=== PATIENT | female | born 1945 | race Two or more races ===

== ENCOUNTER 2017-01-20 09:54 | Inpatient (IN) | payer MEDICARE, MEDICAID ==
[~2017-01-20] VITALS: Ht 162.6 cm; Wt 91.2 kg
[~2017-01-20 09:54] MED LIST: ACET325T53 GT; ASPI81TA2 GT; ATEN50TA GT; ATOR10TA GT; BISA10SU8 RC; CARB-94 GT; DOCU50LI GT; ENTA200T GT; FURO-145 GT; HYDR-3326 GT; MAGN400O6 GT; NA P133E RC; PRO HEAL GT
--- NOTE | 2017-01-20 10:00 | NUR ---
PATIENT BIB RA D/T SOB, TACHYCARDIA. PATIENT IS WARM TO TOUCH. A/OX 1. PATIENT HAS MODERATE AMOUNT OF ORAL SECRETIONS, SUCTIONED BY RT. NO DISTRESS. VITALS STABLE. SAFETY AND COMFORT MEASURES IN PLACE. AWAITING MD ORDERS.
--- NOTE | 2017-01-20 10:10 | NUR ---
NEW IV STARTED ON RFA, 20 G. BLOOD DRAWN AND SENT TO LAB.
[2017-01-20 10:12] LABS: BASOPHILS # (AUTO) 0.2 /CMM (0.0-0.2); BASOPHILS % (AUTO) 1.2 % (0.0-2.0); EOSINOPHILS # (AUTO) 0.1 /CMM (0.0-0.7); EOSINOPHILS % (AUTO) 0.8 % (0.0-6.0); HEMATOCRIT 39 % (33-45); HEMOGLOBIN 12.9 g/dL (11.5-14.8); LYMPHOCYTES # (AUTO) 1.3 /CMM (0.8-4.8); LYMPHOCYTES % (AUTO) 9.5 % (20.0-44.0); MEAN CORPUSCULAR HEMOGLOBIN 31 PG (26.0-33.0); MEAN CORPUSCULAR HGB CONC 33 g/dl (31.0-36.0); MEAN CORPUSCULAR VOLUME 94 fL (82-100); MONOCYTES # (AUTO) 0.8 /CMM (0.1-1.30); MONOCYTES % (AUTO) 5.6 % (2.0-12.0); NEUTROPHILS # (AUTO) 11.1 /CMM (1.8-8.9); NEUTROPHILS % (AUTO) 82.9 % (43.0-81.0); PLATELET COUNT (AUTO) 206 /CMM (150-450); RDW COEFFICIENT OF VARIATION 14.3 (11.5-15.0); RED BLOOD CELL COUNT(AUTO) 4.14 MIL/uL (4.0-5.2); WHITE BLOOD COUNT (AUTO) 13.5 K/uL (4.3-11.0)
[2017-01-20 10:22] LABS: CALCIUM, SERUM 8.7 mg/dL (8.5-10.1); CREATININE 0.5 mg/dL (0.6-1.3); POTASSIUM 4.1 mmol/L (3.5-5.1)
[2017-01-20 10:26] LABS: INR 1.09 (0.87-1.13); PROTHROMBIN TIME 11.4 SECS (9.5-12.7)
[2017-01-20 10:27] LABS: ALBUMIN 2.6 g/dL (3.4-5.0); BILIRUBIN,DIRECT 0.1 mg/dL (0.0-0.2); BILIRUBIN,TOTAL 0.5 mg/dL (0.2-1.0); TOTAL PROTEIN, SERUM 7.6 g/dL (6.4-8.2)
[2017-01-20 10:30] LABS: TROPONIN I 0.033 ng/mL (0.00-0.056)
[2017-01-20] MEDS ORDERED: LEVOFLOXACIN 750 MG /D5W 150ML 150 ML IV ONE ×2 (10:30→10:36)
[2017-01-20] MEDS ORDERED: VANCOMYCIN 1 GM in IV D5W 250 ML IV ONE (10:30)
[2017-01-20] MEDS ORDERED: PIPERACILLIN /TAZOBACTAM 3.375 G in IV D5W 50 ML IV ONE (10:30)
--- NOTE | 2017-01-20 10:30 | NUR ---
WRIGHT INSERTED PER MD ORDERS. NO URINE OUTPUT AT THIS TIME. WILL CONTINUE TO MONITOR.
[2017-01-20] MEDS ORDERED: PANT40SU2 GT (10:45)
[2017-01-20] MEDS ORDERED: FLUT16SP16 BNOSTRILS (10:45)
[2017-01-20] MEDS ORDERED: INSU100V3 SQ (10:45)
[2017-01-20] MEDS ORDERED: MULT-213 GT (10:45)
[2017-01-20] MEDS ORDERED: ASCO500T9 GT (10:45)
[2017-01-20] MEDS ORDERED: LACT-96 GT (10:45)
--- NOTE | 2017-01-20 11:00 | NUR ---
PAGED DR TRUJILLO HEAD OF ETHICS AND COMPLIANCE PANEL
--- NOTE | 2017-01-20 11:03 | NUR ---
DR LOWE ON THE PHONE WITH DR TRUJILLO
--- NOTE | 2017-01-20 11:14 | NUR ---
URINE OBTAINED AND SENT TO LAB.
[2017-01-20] MEDS ORDERED: Z GUARD REMEDY 2 OZ OINT TP PRN (11:30)
[2017-01-20] MEDS ORDERED: ONDANSETRON HCL/PF 4 MG/2 ML VIAL IVP PRN (11:30)
[2017-01-20] MEDS ORDERED: MAGNESIUM HYDROXIDE 30 ML UDC GT PRN (11:30)
[2017-01-20] MEDS ORDERED: DEXTROSE 50%-WATER 50 ML DISP.SYRIN IV PRN (11:30)
[2017-01-20] MEDS ORDERED: MAG HYDROX/AL HYDROX/SIMETH 30 ML UDC GT PRN (11:30)
[2017-01-20] MEDS ORDERED: HYDROCODONE/APAP 5/325MG 1 EACH TABLET GT PRN (11:30)
[2017-01-20] MEDS ORDERED: ZOLPIDEM TARTRATE 5 MG TABLET PO PRN (11:30)
[2017-01-20] MEDS ORDERED: MAGNESIUM HYDROXIDE 30 ML UDC PO PRN (11:30)
[2017-01-20] MEDS ORDERED: BISACODYL SUPP (10 MG) 10 MG/SUPP.RECT SUPP.RECT RC PRN (11:30)
--- NOTE | 2017-01-20 11:33 | NUR ---
REPORT GIVEN TO RN, ZOIE FOR ADMISSION.
[2017-01-20 11:37] LABS: APPEARANCE,URINE Turbid (CLEAR); BILIRUBIN,URINE Negative (NEGATIVE); BLOOD, URINE Large Ery/uL (NEGATIVE); COLOR,URINE Orange (YELLOW); KETONES,URINE Trace (NEGATIVE); LEUKOCYTE ESTERASE ,URINE Negative (NEGATIVE); NITRITE, URINE Negative (NEGATIVE); PH,URINE 5.5 (5.0-8.0); PROTEIN,URINE >=300 mg/dl (NEGATIVE); UGLUCOSE 100 MG/DL mg/dL (NEGATIVE)
[2017-01-20 11:47] LABS: RBC,URINE TOO NUMEROUS TO COUN /HPF (0-2)
[2017-01-20 11:48] LABS: BACTERIA,URINE None seen /HPF (None Seen); SQUAMOUS EPITHELIAL CELL,UR Few /HPF (None Seen)
[2017-01-20] MEDS ORDERED: ACETAMINOPHEN 650 MG/20.3 ML UDC GT PRN (12:00)
--- NOTE | 2017-01-20 12:05 | NUR ---
PATIENT TRANSPORTED TO [facility] FOR ADMISSION VIA ACLS PROTOCOL. RN, ZOIE TO PROVIDE KANE.
[2017-01-20] MEDS: BLOOD SUGAR DIAGNOSTIC 1 EACH STRIP IN SCH ×3 (12:32→23:58)
--- NOTE | 2017-01-20 13:00 | NUR ---
AM RN NOTE Received patient from ER @1150 via [employer] as accompanied by ER staff. Pt A/O X1, able to answer yes, no questions at time of admission. On O2 3L/min via NC. Resp even and non-labored. On tele monitor, SR 96. IV site intact and patent. F/C intact and draining with yellow colored urine. Skin assessment done and pictures taken. Wound consult ordered. Bed in low locked position. Will continue to monitor.
--- NOTE | 2017-01-20 15:00 | NUR ---
AM RN NOTE Pt resting in her bed, no acute distress noted. Dr. Lemon made aware about pt admitted to unit. Per Dr. Lemon hold GT feeding for today and will re-eval tomorrow. Dr. Lemon made aware to re-consile home meds. CN (Rebecca) made aware.
[2017-01-20 16:00] VITALS: BP 116/60
[2017-01-20] MEDS: PIPERACILLIN /TAZOBACTAM 4.5 G in IV D5W 50 ML IV SCH (17:37)
[2017-01-20] MEDS: FLUTICASONE PROPIONATE 16 GM BOTTLE NS SCH (17:38)
--- NOTE | 2017-01-20 18:19 | NUR ---
AM RN NOTE Pt resting in her bed, no acute distress noted. Will endorse care to next shift.
--- NOTE | 2017-01-20 19:20 | NUR ---
TELE/RN NOTES RECEIVED PT IN STABLE CONDITION. OPENS EYES WHEN NAME CALLED. NON-VERBAL, MOANS WHEN SPOKEN TO. O2 3L NC WITH NO SOB NOTED. NPO. GT CLAMPED AND FEEDING HELD PER MD ORDER, SITE CDI. SUCTIONED ORALLY, SMALL WHITE SALIVA, DROOLING. WRIGHT CATH INTACT DRAINING YG URINE. SCAR TO SACRUM WITH REDNESS, AS400 PROGRAMMER. PT MADE AWARE OF PLAN OF CARE, WITH EYES OPEN, MOANED WHEN REPLYING. MADE COMFORTABLE. WILL MAINTAIN SKIN INTEGRITY, TURN AND REPOSITION Q2H. BED AT LOWEST POSITION AND LOCKED, HOB ELEVATED. SIDE TABLE AND CALL KEVIN WITHIN REACH. BED ALARM ON FOR SAFETY MEASURES. WILL CONTINUE TO MONITOR.
[2017-01-20 20:00] VITALS: BP 130/73
--- NOTE | 2017-01-20 21:00 | NUR ---
TELE/RN NOTES CONGESTED, NO COUGHING NOTED. SUCTIONED SMALL AMOUNT OF YELLOW THICK SECRETIONS COMING OUT FROM RIGHT NOSTRIL. ALSO SUCTIONED SMALL AMOUNT OF WHITE CLEAR SECRETIONS FROM MOUTH. TOLERATED WELL. O2 3L NC IN PLACE, SAT 95%. NAD NOTED. WILL CONTINUE TO MONITOR.
[2017-01-20] MEDS ORDERED: IV NS 0.9% 1,000 ML IV PRN (23:30)
[2017-01-21] VITALS (8 sets, daily range): BP systolic 100–148; BP diastolic 60–87
[2017-01-21] MEDS: PIPERACILLIN /TAZOBACTAM 4.5 G in IV D5W 50 ML IV SCH ×5 (00:24→23:51)
--- NOTE | 2017-01-21 04:00 | NUR ---
TELE/R NOTES PRODUCTIVE COUGH. UNABLE TO EXPECTORATE. SUCTIONED VIA NASOPHARYNGEAL AND BACK OF MOUTH, BY CARMEN SLAUGHTER, MODERATE AMOUNT OF THICK YELLOW SECRETIONS. TOLERATED WELL. NAD. O2 3L VIA NC. WILL CONTINUE TO MONITOR.
[2017-01-21] MEDS: BLOOD SUGAR DIAGNOSTIC 1 EACH STRIP IN SCH ×4 (05:47→23:51)
--- NOTE | 2017-01-21 06:34 | NUR ---
TELE/RN NOTES PATIENT SLEEPING. NO SOB ON O2 3L VIA NC, SAT 95%. NO COUGHING AT THIS TIME. R FA IV #20 WITH NS @ 100 ML/RH IN PROGRESS, SITE CDI. WRIGHT CATH INTACT DRAINING 350 ML OF DARK YG. TURNED AND REPOSITIONED Q2H. NO COMPLAINTS OF PAIN AND APPEARS TO BE COMFORTABLE. ALL NEEDS MET. WILL ENDORSE TO AM SHIFT FOR CONTINUITY OF CARE.
[2017-01-21 07:16] LABS: BASOPHILS % (AUTO) 0.4 % (0.0-2.0); EOSINOPHILS # (AUTO) 0.3 /CMM (0.0-0.7); EOSINOPHILS % (AUTO) 2.8 % (0.0-6.0); HEMATOCRIT 35 % (33-45); HEMOGLOBIN 11.5 g/dL (11.5-14.8); LYMPHOCYTES # (AUTO) 1.5 /CMM (0.8-4.8); MEAN CORPUSCULAR HEMOGLOBIN 31 PG (26.0-33.0); MEAN CORPUSCULAR HGB CONC 33 g/dl (31.0-36.0); MEAN CORPUSCULAR VOLUME 95 fL (82-100); MONOCYTES # (AUTO) 0.7 /CMM (0.1-1.30); MONOCYTES % (AUTO) 6.9 % (2.0-12.0); NEUTROPHILS # (AUTO) 7.5 /CMM (1.8-8.9); NEUTROPHILS % (AUTO) 74.9 % (43.0-81.0); PLATELET COUNT (AUTO) 190 /CMM (150-450); RDW COEFFICIENT OF VARIATION 14.9 (11.5-15.0); RED BLOOD CELL COUNT(AUTO) 3.66 MIL/uL (4.0-5.2)
--- NOTE | 2017-01-21 07:46 | NUR ---
INVESTIGATION MANAGER NOTE RECEIVED PTIN BED . NON-VERBAL, . O2 3L NC WITH NO SOB NOTED. NPO. GT CLAMPED AND FEEDING HELD PER MD ORDER, SITE CDI. SUCTIONED ORALLY, SMALL WHITE SALIVA, DROOLING.KEEP CLEAN AND DRY WRIGHT CATH INTACT DRAINING YG URINE. PLAN OF CARE DISUSED WITH PATIENT TURN AND REPOSITION Q2H. BED AT LOWEST POSITION AND LOCKED, HOB ELEVATED. SIDE TABLE AND CALL KEVIN WITHIN REACH. BED ALARM ON FOR SAFETY MEASURES. WILL CONTINUE TO MONITOR. ON TELE MONITOR SR HR 84 , ON IVF ORDERED, RT FA HL INTACT AND PATENT , BED IN LOWEST AND LOCKED POSITION , CALL LIGHT WITHIN REACH
[2017-01-21 07:56] LABS: CALCIUM, SERUM 8.5 mg/dL (8.5-10.1); CREATININE 0.5 mg/dL (0.6-1.3); MAGNESIUM 1.9 mg/dL (1.8-2.4); PHOSPHORUS 3.5 mg/dL (2.5-4.9)
[2017-01-21 08:05] LABS: POTASSIUM 3.9 mmol/L (3.5-5.1)
--- NOTE | 2017-01-21 08:48 | NUR ---
WOUND CARE CONSULT: PT PRESENTS WITH SACRAL SCARRING, GENERALIZED EDEMA WITH INTACT BLISTER TO LEFT BREAST AREA, AND EXCORIATION TO BREAST FOLDS BILATERALLY. SKIN IS MOIST. RECOMMENDATIONS MADE FOR SKIN PROTECTION. DISCUSSED WITH NURSING STAFF. FIRST STEP MATTRESS ORDERED. WILL SEE PRN. STEPHEN IN AGREEMENT WITH PLAN OF CARE. Addendum: 01/21/17 at 0849 by JOVANY MERRITT WNDNU Amended: Links added.
[2017-01-21] MEDS ORDERED: FUROSEMIDE 20 MG TABLET GT SCH (09:00)
[2017-01-21] MEDS: DOCUSATE SODIUM LIQ 100 MG/10 ML UDC GT SCH (09:03)
[2017-01-21] MEDS: PANTOPRAZOLE 40 MG/PACK PACK GT SCH (09:04)
[2017-01-21] MEDS: ATORVASTATIN 10 MG TABLET GT SCH (09:04)
[2017-01-21] MEDS: CARBIDOPA/LEVODOPA 25/250 MG 1 UDTAB GT SCH (09:04)
[2017-01-21] MEDS: ASPIRIN 81 MG TAB.CHEW GT SCH (09:04)
[2017-01-21] MEDS: ENTACAPONE 200 MG TABLET GT SCH (09:05)
[2017-01-21] MEDS: FLUTICASONE PROPIONATE 16 GM BOTTLE NS SCH ×2 (09:05→16:23)
[2017-01-21] MEDS: ASCORBIC ACID 500 MG TABLET GT SCH (09:05)
--- NOTE | 2017-01-21 09:56 | NUR ---
INFORMATICS PHARMACIST OTE SEEN BY PT, WILL HOLD AT THIS TIME ,PATIENT HAS SEVERE CHEST CONGESTED
--- NOTE | 2017-01-21 10:40 | NUR ---
ORNAMENT STITCHER NOTE SPOKE WITH DR JARRETT NOTIFIED THAT PATIENT VERY CONGESTED WITH COUGH FREQUENT, NOTIFIED THAT MEDS WAS GIVEN VIA G TUBE, OK TO ORDER ST SWALLOW EVAL , OK TO,PLACE DVT PUMPS , HOLD MEDS AT THIS TIME , ALSO AWARE THAT PATIENT IS PERSPIRING SKIN VERY MOIST, OK TO START BREATHING TX PRN WITH ALBUTEROL
--- NOTE | 2017-01-21 10:58 | NUR ---
REFINING SUPERVISOR NOTE SEEN BY WOUND NURSE NEW ORDER GIVEN
[2017-01-21] MEDS: FUROSEMIDE 40 MG/4 ML VIAL IV SCH (11:47)
--- NOTE | 2017-01-21 12:56 | NUR ---
BUILDING GUARD DEPUTY SHERIFF NOTE PER DR KOLBY GUNDERSON TO START G TUBE FEEDING AT 35 ML PER HOUR
--- NOTE | 2017-01-21 14:53 | NUR ---
HARDBOARD GRINDER NOTE [facility] MATRASS PLACED ,STARTED ON G TUBE FEEDINGS ORDERED
--- NOTE | 2017-01-21 15:58 | NUR ---
HOTEL SERVICES SALES REPRESENTATIVE NOTE CONT ON GTUBE FEEDING ORDERED KEEP HOB ELEVATED .WILL V CONT TO MONITOR CLOSELY Addendum: 01/21/17 at 1645 by CESIA MUELLER RN MRSA SWAB TAKEN REQUESTED BY LAB
[2017-01-21] MEDS: RENAL NOVASOURCE 1,000 ML BOTTLE GT PRN (16:38)
--- NOTE | 2017-01-21 18:19 | NUR ---
tele rnnnote keep hob elevated at all time ,on 3l nc ,no sob noted , keep clean dry , cont gtube feeding as ordered , will cont to monitor accordantly
--- NOTE | 2017-01-21 19:30 | NUR ---
RN NOTE; RECEIVED PT IN BED AWAKE, NONVERBAL. BREATHING EVENLY. SKIN WARM AND DRY. GT IN PLACE GTF TD WELL. F/C IN PLACE DRAINING CLEAR YELLOW URINE. NEEDS ATTENDED , CALL LIGHT WITHIN REACH. WILL CONT TO MONITOR
[2017-01-21] MEDS: ALBUTEROL FS 2.5 MG/0.5 ML VIAL.NEB NEB PRN (20:22)
[2017-01-22] VITALS: BP_SYST 96; BP_DIAS 55; BP_DIAS 65
[2017-01-22 04:00] VITALS: BP 137/83
[2017-01-22] MEDS: PIPERACILLIN /TAZOBACTAM 4.5 G in IV D5W 50 ML IV SCH ×4 (05:45→23:46)
[2017-01-22] MEDS: BLOOD SUGAR DIAGNOSTIC 1 EACH STRIP IN SCH ×4 (05:45→23:53)
[2017-01-22] MEDS: INSULIN REGULAR, HUMAN 100 UNIT/ML 3 ML VIAL SQ PRN ×3 (05:57→17:16)
--- NOTE | 2017-01-22 06:42 | NUR ---
PT IN BED SLEEPING, AROUSES EASILY. BREATHING EVENLY. NO SOB. NAD. GTF TD WELL. NO ACUTE EVENT DURING THE NIGHT. AFEBRILE. NEEDS ATTENDED. CLEANED AND DRIED. CALL LIGHT WITHIN REACH. WILLC ONT TO MONITOR AND WILL ENDORSE TO AM SHIFT FOR KANE.
--- NOTE | 2017-01-22 07:36 | NUR ---
RN OPEN NOTES RECEIVED REPORT FROM CHANNEL PROCESS PLANT OPERATOR NURSE. WILL CONTINUE TO ASSESS AND MONITOR PATIENT THROUGHOUT MY SHIFT
[2017-01-22] MEDS: FLUTICASONE PROPIONATE 16 GM BOTTLE NS SCH ×2 (08:26→16:38)
[2017-01-22] MEDS: ENTACAPONE 200 MG TABLET GT SCH (08:26)
[2017-01-22] MEDS: CARBIDOPA/LEVODOPA 25/250 MG 1 UDTAB GT SCH (08:27)
[2017-01-22] MEDS: ASPIRIN 81 MG TAB.CHEW GT SCH (08:27)
[2017-01-22] MEDS: ASCORBIC ACID 500 MG TABLET GT SCH (08:27)
[2017-01-22] MEDS: FUROSEMIDE 40 MG/4 ML VIAL IV SCH (08:27)
[2017-01-22] MEDS: ATORVASTATIN 10 MG TABLET GT SCH (08:27)
[2017-01-22] MEDS: PANTOPRAZOLE 40 MG/PACK PACK GT SCH (08:27)
[2017-01-22] MEDS: DOCUSATE SODIUM LIQ 100 MG/10 ML UDC GT SCH (08:35)
--- NOTE | 2017-01-22 08:53 | NUR ---
DR JARRETT AT BEDSIDE
[2017-01-22] MEDS: ALBUTEROL FS 2.5 MG/0.5 ML VIAL.NEB NEB PRN (09:39)
--- NOTE | 2017-01-22 09:40 | NUR ---
RT AT BEDSIDE FOR SUCTIONING AND TREATMENT
[2017-01-22 11:01] LABS: BASOPHILS % (AUTO) 0.3 % (0.0-2.0); EOSINOPHILS # (AUTO) 0.3 /CMM (0.0-0.7); EOSINOPHILS % (AUTO) 2.4 % (0.0-6.0); HEMATOCRIT 38 % (33-45); HEMOGLOBIN 12.4 g/dL (11.5-14.8); LYMPHOCYTES # (AUTO) 1.5 /CMM (0.8-4.8); LYMPHOCYTES % (AUTO) 13.9 % (20.0-44.0); MEAN CORPUSCULAR HEMOGLOBIN 31 PG (26.0-33.0); MEAN CORPUSCULAR HGB CONC 33 g/dl (31.0-36.0); MEAN CORPUSCULAR VOLUME 95 fL (82-100); MONOCYTES # (AUTO) 0.7 /CMM (0.1-1.30); MONOCYTES % (AUTO) 6.6 % (2.0-12.0); NEUTROPHILS # (AUTO) 8.1 /CMM (1.8-8.9); NEUTROPHILS % (AUTO) 76.8 % (43.0-81.0); PLATELET COUNT (AUTO) 224 /CMM (150-450); RDW COEFFICIENT OF VARIATION 14.8 (11.5-15.0); RED BLOOD CELL COUNT(AUTO) 3.98 MIL/uL (4.0-5.2); WHITE BLOOD COUNT (AUTO) 10.6 K/uL (4.3-11.0)
[2017-01-22 11:31] LABS: CALCIUM, SERUM 8.7 mg/dL (8.5-10.1); CREATININE 0.6 mg/dL (0.6-1.3); POTASSIUM 3.1 mmol/L (3.5-5.1)
--- NOTE | 2017-01-22 11:45 | NUR ---
DR JARRETT PAGED REGARDING THE NEED OF PULMONARY CONSULT AT 1131. DR JARRETT APPROVED, CONSULT ORDERED.
--- NOTE | 2017-01-22 12:26 | NUR ---
DR JARRETT NOTIFIED ABOUT POTASSIUM LEVEL OF 3.1. NEW ORDER RECEIVED AND CARRIED OUT
[2017-01-22] MEDS ORDERED: POTASSIUM CHLORIDE 20 MEQ POWDER PACKET GT ONE (12:30)
--- NOTE | 2017-01-22 18:18 | NUR ---
DR JARRETT AT BEDSIDE
--- NOTE | 2017-01-22 18:43 | NUR ---
SENIOR CENTER DIRECTOR CLOSING NOTES PATIENT IS IN BED, WITH HIS EYES OPEN, NON VERBAL. 8L MASK AND SATURATION AT 95%. SINUS TACHY 105 WITH PVC ON THE MONITOR. ALL NURSING CARE ANTICIPATED. PATIENT KEPT CLEAN AND DRY. POTASSIUM LEVEL WAS 3.1, 40 mEq OF KCL WAS REPLACED VIA GT. PULMONARY CONSULT, DR CANALES, PENDING. IV SITE IS INTACT AND PATENT. NO SIGNS AND SYMPTOMS OF DISTRESS OR PAIN. BED IN LOW POSITION, LOCKED AND TWO SIDE RAILS ARE UP. WILL ENDORSE TO FEDERAL APPELLATE CLERK NURSE FOR KANE.
[2017-01-22 20:00] VITALS: BP 113/61
[2017-01-22] MEDS: RENAL NOVASOURCE 1,000 ML BOTTLE GT PRN (22:11)
[2017-01-23] VITALS: BP 129/78
[2017-01-23 04:00] VITALS: BP 122/68
[2017-01-23] MEDS: PIPERACILLIN /TAZOBACTAM 4.5 G in IV D5W 50 ML IV SCH ×4 (05:49→23:30)
[2017-01-23] MEDS: BLOOD SUGAR DIAGNOSTIC 1 EACH STRIP IN SCH ×4 (05:50→23:30)
--- NOTE | 2017-01-23 07:05 | NUR ---
BRAKE RIDER NOTE: RECEIVED PATIENT AWAKE IN BED. PATIENT IS NONVERBAL. RESPIRATIONS EVEN WITH NO SOB NOTED. 8L O2 VIA MASK. RFA HL PATENT AND INTACT. ON TELE WITH ST. G-TUBE INTACT AND PATENT WITH NOVASOURCE RUNNING AT 35CC/HR. FC DRAINING TO GRAVITY WITH YELLOW URINE. SPECIAL MATTRESS NOTED. BED LOW, LOCKED WITH CALL LIGHT WITHIN REACH. WILL CONT TO MONITOR.
[2017-01-23 08:00] VITALS: BP 93/47
[2017-01-23] MEDS: DOCUSATE SODIUM LIQ 100 MG/10 ML UDC GT SCH (09:04)
[2017-01-23] MEDS: CARBIDOPA/LEVODOPA 25/250 MG 1 UDTAB GT SCH (09:05)
[2017-01-23] MEDS: PANTOPRAZOLE 40 MG/PACK PACK GT SCH (09:05)
[2017-01-23] MEDS: ATORVASTATIN 10 MG TABLET GT SCH (09:05)
[2017-01-23] MEDS: ENTACAPONE 200 MG TABLET GT SCH (09:05)
[2017-01-23] MEDS: ASPIRIN 81 MG TAB.CHEW GT SCH (09:05)
[2017-01-23] MEDS: ASCORBIC ACID 500 MG TABLET GT SCH (09:05)
[2017-01-23] MEDS: FLUTICASONE PROPIONATE 16 GM BOTTLE NS SCH ×2 (09:07→18:33)
[2017-01-23 09:21] LABS: BASOPHILS % (AUTO) 0.5 % (0.0-2.0); EOSINOPHILS # (AUTO) 0.6 /CMM (0.0-0.7); EOSINOPHILS % (AUTO) 7.7 % (0.0-6.0); HEMATOCRIT 37 % (33-45); HEMOGLOBIN 12.2 g/dL (11.5-14.8); LYMPHOCYTES # (AUTO) 1.6 /CMM (0.8-4.8); LYMPHOCYTES % (AUTO) 20.1 % (20.0-44.0); MEAN CORPUSCULAR HEMOGLOBIN 31 PG (26.0-33.0); MEAN CORPUSCULAR HGB CONC 33 g/dl (31.0-36.0); MEAN CORPUSCULAR VOLUME 94 fL (82-100); MONOCYTES # (AUTO) 0.6 /CMM (0.1-1.30); MONOCYTES % (AUTO) 7.1 % (2.0-12.0); NEUTROPHILS # (AUTO) 5.3 /CMM (1.8-8.9); NEUTROPHILS % (AUTO) 64.6 % (43.0-81.0); PLATELET COUNT (AUTO) 223 /CMM (150-450); RDW COEFFICIENT OF VARIATION 14.6 (11.5-15.0); WHITE BLOOD COUNT (AUTO) 8.2 K/uL (4.3-11.0)
--- NOTE | 2017-01-23 09:45 | NUR ---
SEED CUTTER NOTE: DR. JARRETT SEEN PATIENT AT BEDSIDE. CONT CARE.
[2017-01-23 09:47] LABS: ALBUMIN 2.4 g/dL (3.4-5.0); BILIRUBIN,TOTAL 0.4 mg/dL (0.2-1.0); CALCIUM, SERUM 8.6 mg/dL (8.5-10.1); CREATININE 0.5 mg/dL (0.6-1.3); MAGNESIUM 1.9 mg/dL (1.8-2.4); PHOSPHORUS 3.2 mg/dL (2.5-4.9); POTASSIUM 3.4 mmol/L (3.5-5.1); TOTAL PROTEIN, SERUM 7.2 g/dL (6.4-8.2)
[2017-01-23 12:00] VITALS: BP 116/69
--- NOTE | 2017-01-23 13:00 | NUR ---
ACCOUNT EXECUTIVE SALES REPRESENTATIVE NOTE: PHARM NOTIFIED OF ZOSYN IV ORDER FOR 1200.
[2017-01-23] MEDS: FUROSEMIDE 40 MG/4 ML VIAL IV SCH (13:43)
[2017-01-23] MEDS: INSULIN REGULAR, HUMAN 100 UNIT/ML 3 ML VIAL SQ PRN ×2 (13:53→18:32)
[2017-01-23 16:00] VITALS: BP_SYST 93; BP_SYST 94; BP_DIAS 47; BP_DIAS 64
--- NOTE | 2017-01-23 19:30 | NUR ---
MORTGAGE LOAN OFFICER ORIGINATOR NOTE: NO ACUTE CHANGES DURING SHIFT. RESPIRATIONS EVEN WITH NO SOB NOTED. 8L O2 VIA MASK. LH 20G PATENT AND INTACT. ON TELE WITH SR. G-TUBE INTACT AND PATENT WITH NOVASOURCE RUNNING AT 35CC/HR. FC DRAINING TO GRAVITY WITH YELLOW URINE. ORDERS CARRIED OUT. BED LOW, LOCKED WITH CALL LIGHT WITHIN REACH. REPORT GIVEN TO MECHANICAL PLANNER NURSE FOR KANE.
--- NOTE | 2017-01-23 19:45 | NUR ---
YARN DRY ROOM WORKER INITIAL NOTE PT RECEIVED IN NO ACUTE DISTRESS. PT IS A/O X1 NON-VERBAL ON 8L 02 VIA NC. ON TELE WITH SR 106. PT IS IN DIAPER WITH F/C THAT IS CLEAN DRY AND PATENT. PT HAS GT FEEDING NOVASOURCE @35CC THROUGH PATENT GT. PT HAS LEFT HAND 22G THAT IS PATENT AND CLEAN. SAFETY/COMFORT MEASURES WILL BE ENSURED DURING THE SHIFT. WILL CONTINUE TO MONITOR.
[2017-01-23 20:00] VITALS: BP 92/57
[2017-01-24] VITALS: BP 104/71
[2017-01-24 04:00] VITALS: BP 92/52
[2017-01-24] MEDS: BLOOD SUGAR DIAGNOSTIC 1 EACH STRIP IN SCH ×4 (05:18→23:38)
[2017-01-24] MEDS: INSULIN REGULAR, HUMAN 100 UNIT/ML 3 ML VIAL SQ PRN ×4 (05:19→23:40)
[2017-01-24] MEDS: PIPERACILLIN /TAZOBACTAM 4.5 G in IV D5W 50 ML IV SCH ×4 (05:19→23:32)
--- NOTE | 2017-01-24 06:41 | NUR ---
AIRCRAFT MAINTENANCE INSTRUCTOR CLOSING NOTE PT REMAINS IN NO ACUTE DISTRESS. PT IS NONVERBAL WITH 8L 02 VIA FACE MASK. 02 SATURATION IS 96-99%. ALL DUE MEDICATIONS WERE GIVEN. PT HAS GT THAT IS CLEAN DRY AND PATENT. PT HAS A LEFT HAND IV THAT IS CLEAN DRY AND PATENT RUNNING FEEDING CURRENTLY. SAFETY AND COMFORT MEASURES WERE ENSURED DURING THE SHIFT. WILL ENDORSE CARE TO AM NURSE.
[2017-01-24 07:13] LABS: BASOPHILS % (AUTO) 0.2 % (0.0-2.0); EOSINOPHILS # (AUTO) 0.6 /CMM (0.0-0.7); EOSINOPHILS % (AUTO) 6.7 % (0.0-6.0); HEMATOCRIT 37 % (33-45); HEMOGLOBIN 12.2 g/dL (11.5-14.8); LYMPHOCYTES # (AUTO) 1.9 /CMM (0.8-4.8); LYMPHOCYTES % (AUTO) 20.6 % (20.0-44.0); MEAN CORPUSCULAR HEMOGLOBIN 31 PG (26.0-33.0); MEAN CORPUSCULAR HGB CONC 33 g/dl (31.0-36.0); MEAN CORPUSCULAR VOLUME 95 fL (82-100); MONOCYTES # (AUTO) 0.7 /CMM (0.1-1.30); MONOCYTES % (AUTO) 7.5 % (2.0-12.0); PLATELET COUNT (AUTO) 220 /CMM (150-450); RDW COEFFICIENT OF VARIATION 14.6 (11.5-15.0); RED BLOOD CELL COUNT(AUTO) 3.88 MIL/uL (4.0-5.2); WHITE BLOOD COUNT (AUTO) 9.3 K/uL (4.3-11.0)
--- NOTE | 2017-01-24 07:37 | NUR ---
RN INITIAL NOTES PT IS IN BED, A/O X1, NON-VERBAL, ON MASK - 8LPM OF O2, SATURATING AT 94%, NASAL SUCTIONING DONE, TURNED AND REPOSITIONED. WRIGHT CATH IS PATENT AND DRAINING YELLOW URINE. ON TELE MONITOR SINUS TACH 105. ON CONTINUOUS FEEDING, TOLERATING IT WELL. HOB ELEVATED. L HAND ON S/L, FLUSHED AND PATENT. AWAITING PULMO CONSULT, WILL [id number] TO MONITOR LUNGS SOUNDS AND SECRETIONS.
[2017-01-24 08:00] VITALS: BP_SYST 105; BP_SYST 122; BP_DIAS 45; BP_DIAS 47
[2017-01-24 08:00] LABS: CALCIUM, SERUM 8.3 mg/dL (8.5-10.1); CREATININE 0.5 mg/dL (0.6-1.3); MAGNESIUM 1.8 mg/dL (1.8-2.4); PHOSPHORUS 3.1 mg/dL (2.5-4.9); POTASSIUM 3.1 mmol/L (3.5-5.1)
[2017-01-24] MEDS: FLUTICASONE PROPIONATE 16 GM BOTTLE NS SCH ×2 (09:02→16:34)
[2017-01-24] MEDS: CARBIDOPA/LEVODOPA 25/250 MG 1 UDTAB GT SCH (09:03)
[2017-01-24] MEDS: PANTOPRAZOLE 40 MG/PACK PACK GT SCH (09:03)
[2017-01-24] MEDS: DOCUSATE SODIUM LIQ 100 MG/10 ML UDC GT SCH (09:03)
[2017-01-24] MEDS: ENTACAPONE 200 MG TABLET GT SCH (09:03)
[2017-01-24] MEDS: ASCORBIC ACID 500 MG TABLET GT SCH (09:03)
[2017-01-24] MEDS: ASPIRIN 81 MG TAB.CHEW GT SCH (09:03)
[2017-01-24] MEDS: ATORVASTATIN 10 MG TABLET GT SCH (09:03)
[2017-01-24] MEDS: FUROSEMIDE 40 MG/4 ML VIAL IV SCH (09:03)
[2017-01-24] MEDS: POTASSIUM CHLORIDE 20 MEQ POWDER PACKET NG SCH ×2 (10:46→11:21)
[2017-01-24 12:00] VITALS: BP 102/65
[2017-01-24] MEDS ORDERED: POTASSIUM CL. PREMIX PERIPHER. 50 ML IV SCH (12:30)
[2017-01-24 16:00] VITALS: BP 116/88
--- NOTE | 2017-01-24 18:37 | NUR ---
RN CLOSING NOTES NO SIGNIFICANT CHANGES DURING AM SHIFT, TOLERATED FACE MASK ON 8L, 40% FI02, SATURATING WELL, NO LABORED BREATHING NOTED. NO S/SX DISTRESS NOTED. WRIGHT CATH IS DRAINED WITH CLEAR YELLOW URINE 1200ML. KEPT CLEAN AND DRY, TURNED AND REPOSITIONED Q2H. TOLERATING GT CONTINUOUS FEEDING, NO RESIDUAL NOTED. LEFT HAND IV SITE IS PATENT, NO S/SX OF INFECTION OR INFILTRATION NOTED. WILL ENDORSED TO PM NURSE TO CONTINUITY OF CARE.
--- NOTE | 2017-01-24 19:15 | NUR ---
RN INITIAL NOTES RECEIVED PATIENT IN BED, ABLE TO OPEN EYES SPONTANEOUSLY, NOTED WITH TRACKING. PATIENT IS NONVERBAL. PATIENT IS ON FACIAL MASK AT 8LPM OF O2, SATURATION KEPT >96%. PATIENT IS SR ON TELE WITH HR OF 90s. WITH L HAND G20 AND R FOREARM G20, FLUSHED AND KEPT PATENT, ON SL. GT INTACT, FLUSHED AND PATENT, FEEDING INFUSING WELL. F/C INTACT AND DRAINING WELL WITH CLOUDY, YELLOW URINE. PATIENT'S NEEDS ANTICIPATED AND MET. SAFETY AND COMFORT ENSURED. BED IN LOW AND LOCKED POSITION. WILL MONITOR CLOSELY.
[2017-01-24 20:00] VITALS: BP 115/70
[2017-01-25] VITALS: BP 120/73
[2017-01-25 04:00] VITALS: BP 103/65
[2017-01-25] MEDS: PIPERACILLIN /TAZOBACTAM 4.5 G in IV D5W 50 ML IV SCH ×3 (05:24→17:08)
[2017-01-25] MEDS: BLOOD SUGAR DIAGNOSTIC 1 EACH STRIP IN SCH ×3 (05:24→17:09)
[2017-01-25] MEDS: RENAL NOVASOURCE 1,000 ML BOTTLE GT PRN (05:24)
--- NOTE | 2017-01-25 06:33 | NUR ---
RN CLOSING NOTES PATIENT WITH NO ACUTE CHANGE IN CONDITION OBSERVED OVERNIGHT. PATIENT TOLERATING O2 THERAPY AT 8LPM VIA FACIAL MASK, NO RESPIRATORY DISTRESS, SATURATION KEPT AT 97%. GTF INFUSING WELL, NO GASTRIC RESIDUAL, FLUSHED AND KEPT PATENT. ALL DUE MEDS GIVEN ORDERED. AM LABS DRAWN. PATIENT'S NEEDS ANTICIPATED AND MET. SAFETY AND COMFORT ENSURED. BED IN LOW AND LOCKED POSITION. CALL LIGHT IN REACH. WILL ENDORSE ACCORDINGLY FOR CONTINUITY OF CARE.
[2017-01-25 06:52] LABS: BASOPHILS % (AUTO) 0.4 % (0.0-2.0); EOSINOPHILS # (AUTO) 0.5 /CMM (0.0-0.7); EOSINOPHILS % (AUTO) 5.7 % (0.0-6.0); HEMATOCRIT 36 % (33-45); HEMOGLOBIN 11.8 g/dL (11.5-14.8); LYMPHOCYTES # (AUTO) 2.1 /CMM (0.8-4.8); MEAN CORPUSCULAR HEMOGLOBIN 31 PG (26.0-33.0); MEAN CORPUSCULAR HGB CONC 33 g/dl (31.0-36.0); MEAN CORPUSCULAR VOLUME 95 fL (82-100); MONOCYTES # (AUTO) 0.5 /CMM (0.1-1.30); MONOCYTES % (AUTO) 5.6 % (2.0-12.0); NEUTROPHILS # (AUTO) 5.6 /CMM (1.8-8.9); NEUTROPHILS % (AUTO) 64.3 % (43.0-81.0); PLATELET COUNT (AUTO) 222 /CMM (150-450); RDW COEFFICIENT OF VARIATION 14.1 (11.5-15.0); RED BLOOD CELL COUNT(AUTO) 3.78 MIL/uL (4.0-5.2); WHITE BLOOD COUNT (AUTO) 8.8 K/uL (4.3-11.0)
[2017-01-25 07:09] LABS: CALCIUM, SERUM 8.7 mg/dL (8.5-10.1); CREATININE 0.5 mg/dL (0.6-1.3); PHOSPHORUS 3.1 mg/dL (2.5-4.9); POTASSIUM 3.2 mmol/L (3.5-5.1)
--- NOTE | 2017-01-25 07:20 | NUR ---
RN INITIAL NOTES PT IS IN BED,RESTING COMFORTABLY, A/O X1, NON-VERBAL, OPENS EYES. ON FACE MASK - 8LPM OF O2, SATURATING WELL, TURNED AND REPOSITIONED. WRIGHT CATH IS PATENT AND DRAINING YELLOW URINE. ON TELE MONITOR SINUS TACH. ON CONTINUOUS FEEDING, TOLERATING IT WELL. HOB ELEVATED. L HAND ON S/L, FLUSHED AND PATENT. AWAITING PULMO CONSULT, WILL [id number] TO MONITOR LUNGS SOUNDS AND SECRETIONS- NASAL SUCTIONING PRN, SIDE RAILS UP, BED LOCKED AND IN LOWEST POSITION, CALL LIGHT WITHIN REACH.
[2017-01-25 08:00] VITALS: BP 112/61
[2017-01-25] MEDS: FLUTICASONE PROPIONATE 16 GM BOTTLE NS SCH ×2 (08:27→17:09)
[2017-01-25] MEDS: FUROSEMIDE 40 MG/4 ML VIAL IV SCH (08:28)
[2017-01-25] MEDS: CARBIDOPA/LEVODOPA 25/250 MG 1 UDTAB GT SCH (08:29)
[2017-01-25] MEDS: ASCORBIC ACID 500 MG TABLET GT SCH (08:29)
[2017-01-25] MEDS: DOCUSATE SODIUM LIQ 100 MG/10 ML UDC GT SCH (08:29)
[2017-01-25] MEDS: ASPIRIN 81 MG TAB.CHEW GT SCH (08:29)
[2017-01-25] MEDS: ENTACAPONE 200 MG TABLET GT SCH (08:29)
[2017-01-25] MEDS: PANTOPRAZOLE 40 MG/PACK PACK GT SCH (08:29)
[2017-01-25] MEDS: ATORVASTATIN 10 MG TABLET GT SCH (08:29)
[2017-01-25] MEDS ORDERED: POTASSIUM CHLORIDE 20 MEQ POWDER PACKET GT ONE (10:00)
[2017-01-25] MEDS: INSULIN REGULAR, HUMAN 100 UNIT/ML 3 ML VIAL SQ PRN ×2 (11:12→17:18)
[2017-01-25 12:00] VITALS: BP 103/61
[2017-01-25] MEDS: ALBUTEROL FS 2.5 MG/0.5 ML VIAL.NEB NEB SCH ×2 (13:00→21:21)
[2017-01-25 13:11] LABS: ABG OXYGEN SATURATION 95.8 % (92.0-98.5); ABG PCO2 56.4 mmHg (35.0-45.0); ABG PH 7.416 (7.350-7.450); ABG PO2 84.5 mmHg (75.0-100.0); AaDO2 208.6 mmHg; COHb 0.6 % (0.5-1.5); MetHb 0.2 % (0.0-1.5); SITE, ABG Right Radial; VENT MODE, BG SIMPLE MASK
[2017-01-25] MEDS: ENOXAPARIN SODIUM 40 MG/0.4 ML DISP.SYRIN SQ SCH (13:48)
[2017-01-25 16:00] VITALS: BP 114/65
--- NOTE | 2017-01-25 18:41 | NUR ---
RN CLOSING NOTES NO SIGNIFICANT CHANGES DURING AM SHIFT, TOLERATED MASK ON 8LPM O2, SATURATING WELL, NO LABORED BREATHING NOTED. NO S/SX DISTRESS NOTED. WRIGHT CATH IS DRAINED WITH CLEAR YELLOW URINE 1700ML. KEPT CLEAN AND DRY, TURNED AND REPOSITIONED Q2H. TOLERATING GT CONTINUOUS FEEDING, NO RESIDUAL NOTED. LEFT HAND IV SITE IS PATENT, NO S/SX OF INFECTION OR INFILTRATION NOTED. PULMO CONSULT WITH DR CANALES, CONTINUE ST SUCTIONING, LABS IN AM. WILL ENDORSED TO PM NURSE TO CONTINUITY OF CARE.
--- NOTE | 2017-01-25 19:15 | NUR ---
RN INITIAL NOTES RECEIVED PATIENT IN BED, DIFFICULTY TO AROUSE BUT AROUSABLE WITH PAINFUL STIMULI. PATIENT IS NONVERBAL. PATIENT IS ON FACIAL MASK AT 8LPM OF O2, SATURATION AT 91%, AIRWAY SUCTIONED WITH HELP. PATIENT IS SR ON TELE WITH HR OF 90s. WITH L HAND G20 FLUSHED AND KEPT PATENT, ON SL. GT INTACT, FLUSHED AND PATENT, FEEDING INFUSING WELL. F/C INTACT AND DRAINING WELL WITH CLOUDY, YG COLORED URINE. PATIENT'S NEEDS ANTICIPATED AND MET. SAFETY AND COMFORT ENSURED. BED IN LOW AND LOCKED POSITION. WILL MONITOR CLOSELY.
[2017-01-25 20:00] VITALS: BP 139/77
[2017-01-26] VITALS (9 sets, daily range): BP systolic 104–126; BP diastolic 63–81
[2017-01-26] MEDS: PIPERACILLIN /TAZOBACTAM 4.5 G in IV D5W 50 ML IV SCH ×5 (00:51→23:47)
[2017-01-26] MEDS: BLOOD SUGAR DIAGNOSTIC 1 EACH STRIP IN SCH ×5 (00:54→23:46)
[2017-01-26] MEDS: ALBUTEROL FS 2.5 MG/0.5 ML VIAL.NEB NEB SCH ×7 (00:58→23:14)
[2017-01-26] MEDS: INSULIN REGULAR, HUMAN 100 UNIT/ML 3 ML VIAL SQ PRN ×2 (00:58→11:28)
[2017-01-26] MEDS: RENAL NOVASOURCE 1,000 ML BOTTLE GT PRN (05:15)
--- NOTE | 2017-01-26 06:21 | NUR ---
RN CLOSING NOTES NO ACUTE DISTRESS OBSERVED OVERNIGHT. PATIENT'S AIRWAY SUCTIONED NEEDED, KEPT CLEAR AND PATENT. SR ON TELE. GTF TOLERATED WELL, NO GASTRIC RESIDUAL, GTUBE FLUSHED AND KEPT PATENT. HOB ELEVATED. F/C INTACT AND DRAINING WELL WITH CLOUDY, TEA COLORED URINE. ALL DUE MEDS GIVEN ORDERED. AM LABS DRAWN. NEEDS ANTICIPATED AND MET. SAFETY AND COMFORT ENSURED. BED IN LOW AND LOCKED POSITION. WILL ENDORSE ACCORDINGLY FOR CONTINUITY OF CARE.
[2017-01-26 06:58] LABS: BASOPHILS % (AUTO) 0.3 % (0.0-2.0); EOSINOPHILS # (AUTO) 0.4 /CMM (0.0-0.7); EOSINOPHILS % (AUTO) 4.1 % (0.0-6.0); HEMATOCRIT 39 % (33-45); HEMOGLOBIN 13.2 g/dL (11.5-14.8); LYMPHOCYTES # (AUTO) 1.6 /CMM (0.8-4.8); LYMPHOCYTES % (AUTO) 15.2 % (20.0-44.0); MEAN CORPUSCULAR HEMOGLOBIN 32 PG (26.0-33.0); MEAN CORPUSCULAR HGB CONC 34 g/dl (31.0-36.0); MEAN CORPUSCULAR VOLUME 95 fL (82-100); MONOCYTES # (AUTO) 0.6 /CMM (0.1-1.30); MONOCYTES % (AUTO) 5.3 % (2.0-12.0); NEUTROPHILS # (AUTO) 8.1 /CMM (1.8-8.9); NEUTROPHILS % (AUTO) 75.1 % (43.0-81.0); PLATELET COUNT (AUTO) 232 /CMM (150-450); RDW COEFFICIENT OF VARIATION 14.3 (11.5-15.0); RED BLOOD CELL COUNT(AUTO) 4.16 MIL/uL (4.0-5.2); WHITE BLOOD COUNT (AUTO) 10.8 K/uL (4.3-11.0)
[2017-01-26 07:18] LABS: CALCIUM, SERUM 8.9 mg/dL (8.5-10.1); CREATININE 0.6 mg/dL (0.6-1.3); MAGNESIUM 1.9 mg/dL (1.8-2.4); PHOSPHORUS 3.8 mg/dL (2.5-4.9); POTASSIUM 3.4 mmol/L (3.5-5.1)
--- NOTE | 2017-01-26 07:31 | NUR ---
AM RN NOTE Received patient sleeping comfortably in her bed, arousable to painful stimuli. Pt non-verbal, on facial mask O2 @8L/min, O2 sat 96%. On tele monitor, SR. IV site intact and patent. Continue on GT feeding @35ml/hr, tolerated well. Bed in low locked position. Will continue to monitor.
[2017-01-26] MEDS: ENTACAPONE 200 MG TABLET GT SCH (08:36)
[2017-01-26] MEDS: FUROSEMIDE 40 MG/4 ML VIAL IV SCH (08:36)
[2017-01-26] MEDS: ASPIRIN 81 MG TAB.CHEW GT SCH (08:36)
[2017-01-26] MEDS: CARBIDOPA/LEVODOPA 25/250 MG 1 UDTAB GT SCH (08:36)
[2017-01-26] MEDS: DOCUSATE SODIUM LIQ 100 MG/10 ML UDC GT SCH (08:36)
[2017-01-26] MEDS: ASCORBIC ACID 500 MG TABLET GT SCH (08:36)
[2017-01-26] MEDS: ATORVASTATIN 10 MG TABLET GT SCH (08:36)
[2017-01-26] MEDS: PANTOPRAZOLE 40 MG/PACK PACK GT SCH (08:36)
--- NOTE | 2017-01-26 09:00 | NUR ---
AM RN NOTE Fluticasone nasal spray not available, called Lori (Pharmacist) to refill.
[2017-01-26] MEDS ORDERED: POTASSIUM CHLORIDE 20 MEQ POWDER PACKET GT ONE (09:30)
[2017-01-26] MEDS: FLUTICASONE PROPIONATE 16 GM BOTTLE NS SCH ×2 (10:03→17:21)
--- NOTE | 2017-01-26 11:28 | NUR ---
AM RN NOTE Pt on O2 4L/min via NC as initiated by RT. O2 sat 97%. No acute distress noted.
--- NOTE | 2017-01-26 11:45 | NUR ---
AM RN NOTE CO2 (40) lab result notified to Sandra KIRKLAND with [facility].
--- NOTE | 2017-01-26 18:15 | NUR ---
AM RN NOTE Patient resting in her bed, on O2 4L/min via NC. O2 sat 98%. Suctioned as needed. Continue on GT feeding tolerated well, no residual noted. HOB elevated. IV site intact and patent. Bed in low locked position. Will endorse care to next shift.
[2017-01-26] MEDS: ENOXAPARIN SODIUM 40 MG/0.4 ML DISP.SYRIN SQ SCH (20:53)
[2017-01-27] VITALS (7 sets, daily range): BP systolic 91–125; BP diastolic 54–74
[2017-01-27] MEDS: ALBUTEROL FS 2.5 MG/0.5 ML VIAL.NEB NEB SCH ×5 (03:52→19:38)
[2017-01-27] MEDS: PIPERACILLIN /TAZOBACTAM 4.5 G in IV D5W 50 ML IV SCH ×3 (05:44→17:08)
[2017-01-27] MEDS: BLOOD SUGAR DIAGNOSTIC 1 EACH STRIP IN SCH ×3 (05:44→17:03)
[2017-01-27] MEDS: RENAL NOVASOURCE 1,000 ML BOTTLE GT PRN (05:46)
--- NOTE | 2017-01-27 06:51 | NUR ---
HEAD BATCHER PT BEING STABLE ALL NIGHT, NO DISTRESS, KEPT ON 4 L NC SATURATING 95-97%. NO S./S PAIN NOTED. WILL ENDORSE CARE TO DAY SHIFT.
--- NOTE | 2017-01-27 07:00 | NUR ---
RN NOTES RECEIVED PT ON ON BE , A/Ox1, NONVERBAL , RESPIRATION EVEN AND UNLABORED, NO SOB NOTED , ON 4 L O2 N/C, ON TELE SR IN 80'S , WRIGHT DRAINING TO GRAVITY , TOLERATING TF NOVASOURCE AT 35CC/HR WELL , NO RESIDUAL NOTED, L HAND IV SITE G 22 CDI, SR UP x3, CALL LIGHT WITHIN EASY REACH, CONTINUE TO MONITOR .
[2017-01-27 07:43] LABS: CREATININE 0.6 mg/dL (0.6-1.3); POTASSIUM 3.1 mmol/L (3.5-5.1)
[2017-01-27] MEDS: ASPIRIN 81 MG TAB.CHEW GT SCH (09:09)
[2017-01-27] MEDS: DOCUSATE SODIUM LIQ 100 MG/10 ML UDC GT SCH (09:09)
[2017-01-27] MEDS: CARBIDOPA/LEVODOPA 25/250 MG 1 UDTAB GT SCH (09:09)
[2017-01-27] MEDS: FUROSEMIDE 40 MG/4 ML VIAL IV SCH (09:09)
[2017-01-27] MEDS: ENTACAPONE 200 MG TABLET GT SCH (09:09)
[2017-01-27] MEDS: PANTOPRAZOLE 40 MG/PACK PACK GT SCH (09:09)
[2017-01-27] MEDS: ATORVASTATIN 10 MG TABLET GT SCH (09:09)
[2017-01-27] MEDS: ASCORBIC ACID 500 MG TABLET GT SCH (09:11)
[2017-01-27] MEDS: FLUTICASONE PROPIONATE 16 GM BOTTLE NS SCH ×2 (09:12→17:04)
[2017-01-27] MEDS: INSULIN REGULAR, HUMAN 100 UNIT/ML 3 ML VIAL SQ PRN ×2 (12:28→17:03)
[2017-01-27] MEDS: POTASSIUM CL. PREMIX PERIPHER. 50 ML IV SCH ×4 (12:58→15:48)
[2017-01-27] MEDS ORDERED: SCOP1PAT TP (16:20)
[2017-01-27] MEDS ORDERED: PIPE3.379 IV (16:23)
[2017-01-27] MEDS ORDERED: ALBU2.5V13 NEB (16:23)
[2017-01-27] MEDS ORDERED: ENOX40DI SQ (16:23)
[2017-01-27] MEDS ORDERED: Renal Novasource GT (16:23)
[2017-01-27] MEDS ORDERED: PIPE4.5F2 IV (16:24)
[2017-01-27] MEDS ORDERED: SCOPOLAMINE HBR 1 EA PATCH.TD72 TD SCH (16:30)
--- NOTE | 2017-01-27 17:00 | NUR ---
RN NOTES REPORT GIVEN TO 4 SEASON , KYLE D/JUAN DAVID PER JOAQUIN POST DOCTORAL FELLOW ORDER . PT STABLE ,
--- NOTE | 2017-01-27 18:34 | NUR ---
RN NOTES PT STABLE , TOLERATING TF WELL , MEDICATED PER MD ORDER, , AWAITING TO BE TRANSFERRED TO [address] [place] [address] VIA AMBULANCE
--- NOTE | 2017-01-27 20:25 | NUR ---
RN NOTES REPORT GIVEN TO 2 BRAND MARKETING COORDINATOR FROM [facility]. PATIENT IS ALERT, ABLE TO OPEN EYES SPONTANEOUSLY. NO DISTRESS NOTED. PATIENT ON 4LPM OF O2 VIA NC, AIRWAY SUCTIONED NEEDED. PATIENT'S GT FLUSHED AND CLAMPED, NO GASTRIC RESIDUAL NOTED. L HAND G22, FLUSHED AND PATENT, ON SL. PATIENT LEFT UNIT IN A STABLE CONDITION. NO DISTRESS. D/C PAPERS ENDORSED ACCORDINGLY.
== END 2017-01-27 20:20 | DRG 177 ==
LOC: ER 09:58 → TELE1 11:33
PROVIDERS: ADMIT Internal Medicine; ATTEND Internal Medicine
DX: J69.0 Pneumonitis due to inhalation of food and vomit (principal); E43 Unspecified severe protein-calorie malnutrition; J96.21 Acute and chronic respiratory failure with hypoxia; G92 Toxic encephalopathy; I50.33 Acute on chronic diastolic (congestive) heart failure; L89.159 Pressure ulcer of sacral region, unspecified stage; R53.2 Functional quadriplegia; E11.22 Type 2 diabetes mellitus with diabetic chronic kidney disease; G20 Parkinson's disease; J96.22 Acute and chronic respiratory failure with hypercapnia; E66.2 Morbid (severe) obesity with alveolar hypoventilation; R13.10 Dysphagia, unspecified; F02.80 Dementia in other diseases classified elsewhere, unspecified severity, without behavioral disturbance, psychotic disturbance, mood disturbance, and anxiety; E78.5 Hyperlipidemia, unspecified; E87.70 Fluid overload, unspecified; F09 Unspecified mental disorder due to known physiological condition; I10 Essential (primary) hypertension; I25.10 Atherosclerotic heart disease of native coronary artery without angina pectoris; Z87.891 Personal history of nicotine dependence; J44.9 Chronic obstructive pulmonary disease, unspecified; Z96.659 Presence of unspecified artificial knee joint; Z96.649 Presence of unspecified artificial hip joint; Z88.2 Allergy status to sulfonamides; N18.3 Chronic kidney disease, stage 3 (moderate); Z93.1 Gastrostomy status; Z68.34 Body mass index [BMI] 34.0-34.9, adult
CPT/HCPCS: 31720; 36415; 36600; 71010-TC; 80048-TC; 80053-TC; 80061-TC; 80076-TC; 81000-TC; 82945-TC; 82962-TC; 83605-TC; 83735-TC; 84100-TC; 84484-TC; 85025-TC; 85730-TC; 87040-TC; 87081-TC; 87086-TC; 92611-TC; 93307-TC; 94799-TC; A4606; J1650; J1815; J1940; J1956; J2543; J3370; J3480; J7030; J7050; J7060; Z7610

== ENCOUNTER 2017-03-12 11:57 | Inpatient (IN) | payer MEDICARE, MEDICAID ==
[~2017-03-12] VITALS: Ht 162.6 cm; Wt 94.3 kg
[~2017-03-12 11:57] MED LIST changes: +ALBU2.5V13 NEB; +ASCO500T9 GT; -ATEN50TA GT; +ENOX40DI SQ; +FLUT16SP16 BNOSTRILS; -HYDR-3326 GT; +INSU100V3 SQ; +LACT-96 GT; +MULT-213 GT; +PANT40SU2 GT; +PIPE4.5F2 IV; -PRO HEAL GT; +Renal Novasource GT; +SCOP1PAT TP
--- NOTE | 2017-03-12 12:00 | NUR ---
BIBRA 60 FROM [facility], WORSENING SOB AND CHEST CONGESTION. PATIENT RECEIVED ON NON REBREATHER SATING 95%. PATIENT APPEARS ALTERED- IN MILD DISTRESS. TEMP 100.2. GOWNED PT AND PLACED ON TELE MONITOR
--- NOTE | 2017-03-12 12:00 | NUR ---
BIB RA 60 FROM [facility], WORSENING SOB AND CHEST CONGESTION. ON OXYGEN VIA MASK RESTAURANT SHIFT LEADER. AT BS FOR EVAL. CALLED RT. IV ACCESS STARTED. BLOOD DARWN. BLOOD CULTURE DRAWN. SAFETY AND COMFORT MEASURES PROVIDED. WILL MONITOR.
--- NOTE | 2017-03-12 12:07 | NUR ---
FLAKING ROLL OPERATOR AT BS
[2017-03-12 12:18] LABS: BASOPHILS % (AUTO) 0.2 % (0.0-2.0); EOSINOPHILS % (AUTO) 0.3 % (0.0-6.0); HEMATOCRIT 37 % (33-45); LYMPHOCYTES # (AUTO) 0.8 /CMM (0.8-4.8); MEAN CORPUSCULAR HEMOGLOBIN 31 PG (26.0-33.0); MEAN CORPUSCULAR HGB CONC 32 g/dl (31.0-36.0); MEAN CORPUSCULAR VOLUME 96 fL (82-100); MONOCYTES # (AUTO) 0.7 /CMM (0.1-1.30); MONOCYTES % (AUTO) 4.6 % (2.0-12.0); NEUTROPHILS # (AUTO) 14.4 /CMM (1.8-8.9); NEUTROPHILS % (AUTO) 89.9 % (43.0-81.0); PLATELET COUNT (AUTO) 305 /CMM (150-450); RDW COEFFICIENT OF VARIATION 15.2 (11.5-15.0); WHITE BLOOD COUNT (AUTO) 15.9 K/uL (4.3-11.0)
[2017-03-12 12:28] LABS: CALCIUM, SERUM 8.4 mg/dL (8.5-10.1); CARBON DIOXIDE 39 mmol/L (21-32); CHLORIDE 103 mmol/L (98-107); CREATININE 0.6 mg/dL (0.6-1.3); GLUCOSE 280 mg/dL (74-106); POTASSIUM 3.6 mmol/L (3.5-5.1); SODIUM SERUM 144 mmol/L (136-145); UREA NITROGEN, BLOOD 25 mg/dL (7-18)
[2017-03-12 12:32] LABS: INR 1.06 (0.87-1.13)
[2017-03-12 12:33] LABS: ABG BASE EXCESS 4.8 mmol/L; ABG OXYGEN SATURATION 98.1 % (92.0-98.5); ABG PCO2 45.4 mmHg (35.0-45.0); ABG PH 7.433 (7.350-7.450); ABG PO2 135.3 mmHg (75.0-100.0); AaDO2 242.6 mmHg; COHb 0.3 % (0.5-1.5); MetHb 0.7 % (0.0-1.5); O2Hb 97.1 % (94.0-97.0); PEEP,BG 0 cm H2O; SITE, ABG Right Radial; VT, ABG 500 mL
[2017-03-12 12:36] LABS: TROPONIN I 0.036 ng/mL (0.00-0.056)
[2017-03-12 12:38] LABS: VENT MODE, BG SIMPLE MASK
--- NOTE | 2017-03-12 12:39 | NUR ---
CALLED PHARMACY FOR DUE MEDS
[2017-03-12 12:41] LABS: ALANINE AMINOTRANSFERASE 28 U/L (12-78); ALBUMIN 2.1 g/dL (3.4-5.0); ALKALINE PHOSPHATASE 102 U/L (46-116); ASPARTATE AMINOTRANSFERASE 34 U/L (15-37); B-TYPE NATRIURETIC PEPTIDE 426 PG/ML (0-125); BILIRUBIN,DIRECT 0.1 mg/dL (0.0-0.2); BILIRUBIN,TOTAL 0.4 mg/dL (0.2-1.0); TOTAL PROTEIN, SERUM 7.5 g/dL (6.4-8.2)
--- NOTE | 2017-03-12 12:51 | NUR ---
URINE SAMPLE OBTAINED, SENT.
[2017-03-12 12:55] LABS: APPEARANCE,URINE Slightly Cloudy (CLEAR); BILIRUBIN,URINE Negative (NEGATIVE); BLOOD, URINE Moderate Ery/uL (NEGATIVE); KETONES,URINE Negative (NEGATIVE); LEUKOCYTE ESTERASE ,URINE Small (NEGATIVE); NITRITE, URINE Negative (NEGATIVE); PROTEIN,URINE 30 mg/dl (NEGATIVE); UGLUCOSE Negative (NEGATIVE)
[2017-03-12 12:56] LABS: COLOR,URINE Dark Yellow (YELLOW)
[2017-03-12] MEDS ORDERED: VANCOMYCIN 1 GM in IV D5W 250 ML IV ONE ×2 (13:00→14:00)
[2017-03-12] MEDS ORDERED: IV NS 0.9% 1,000 ML BAG IV ONE ×2 (13:00→14:00)
[2017-03-12] MEDS ORDERED: PIPERACILLIN /TAZOBACTAM 3.375 G in IV D5W 50 ML IV ONE (13:00)
[2017-03-12 13:01] LABS: BACTERIA,URINE Moderate /HPF (None Seen); RBC,URINE 51-80 /HPF (0-2); WBC,URINE 21-50 /HPF (0-3)
[2017-03-12 13:02] LABS: SQUAMOUS EPITHELIAL CELL,UR Few /HPF (None Seen)
[2017-03-12] MEDS ORDERED: ZINC220C6 PO (13:31)
--- NOTE | 2017-03-12 13:41 | NUR ---
REPORT GIVEN TO [facility] GRAF FOR TELE ROOM 314-2
--- NOTE | 2017-03-12 13:50 | NUR ---
INTENSIVE CARE NURSECHEMICAL MAKER NOTES PT RECEIVED ON 7L SIMPLE MASK. ALERT AND ORIENTED X1. PATIENT IS NONVERBAL. GENERALIZED EDEMA NOTED. OPENS EYES TO NAME AND LIGHT TOUCH. PERIPHERAL IV LEFT HAND INTACT AND PATENT. BED IN LOW LOCKED POSITION. CALL LIGHT WITHIN REACH. WILL CONTINUE TO MONITOR.
[2017-03-12] MEDS ORDERED: ACETAMINOPHEN 325 MG TABLET PO PRN (14:00)
[2017-03-12] MEDS ORDERED: ONDANSETRON HCL/PF 4 MG/2 ML VIAL IVP PRN (14:00)
[2017-03-12] MEDS ORDERED: FEE PK DOSING 1 MIN EA MC ONE (14:17)
--- NOTE | 2017-03-12 14:50 | NUR ---
REGISTERED NURSE HH CASE MANAGER NOTES PATIENT COMPLETED SEPSIS FLUID RESUSCITATION TOLERATED WELL. STARTED ON IV NS AT 100ML/HR. WILL CONTINUE TO MONITOR.
[2017-03-12 15:55] LABS: ALBUMIN 1.8 g/dL (3.4-5.0); BILIRUBIN,DIRECT 0.1 mg/dL (0.0-0.2); BILIRUBIN,TOTAL 0.5 mg/dL (0.2-1.0); CALCIUM, SERUM 8.1 mg/dL (8.5-10.1); CREATININE 0.6 mg/dL (0.6-1.3); POTASSIUM 3.6 mmol/L (3.5-5.1); TOTAL PROTEIN, SERUM 6.8 g/dL (6.4-8.2)
[2017-03-12 16:00] VITALS: BP 113/67
[2017-03-12] MEDS: MEROPENEM 1 G in IV NS 0.9% 100 ML IV SCH ×2 (17:40→23:14)
[2017-03-12] MEDS: IV NS 0.9% 1,000 ML IV PRN (17:41)
[2017-03-12 17:43] LABS: ABG BASE EXCESS 7.5 mmol/L; ABG OXYGEN SATURATION 92.6 % (92.0-98.5); ABG PCO2 51.4 mmHg (35.0-45.0); ABG PH 7.426 (7.350-7.450); ABG PO2 64.8 mmHg (75.0-100.0); AaDO2 190.3 mmHg; COHb 0.3 % (0.5-1.5); MetHb 0.6 % (0.0-1.5); O2Hb 91.8 % (94.0-97.0); SITE, ABG Right Radial; VENT MODE, BG SIMPLE MASK
[2017-03-12] MEDS ORDERED: IV NS 0.9% 1,000 ML IV PRN (18:00)
--- NOTE | 2017-03-12 19:00 | NUR ---
CLAIMS SUPPORT SPECIALIST CLOSING NOTES PT IS RESTING IN BED. NO SIGNS OF DISTRESS NOTED. WILL ENDORSE CARE TO MANAGER GOVERNMENT NURSE FOR KANE. BED IS LOCKED AND LOWERED. BEDSIDE RAILS ARE UP X2.
--- NOTE | 2017-03-12 19:30 | NUR ---
RN NOTES: PT RECEIVED ON 7L SIMPLE MASK. ALERT AND ORIENTED X1. PATIENT IS NONVERBAL. GENERALIZED EDEMA NOTED. OPENS EYES TO NAME AND LIGHT TOUCH. PERIPHERAL IV LEFT HAND INTACT AND PATENT. BED IN LOW LOCKED POSITION. CALL LIGHT WITHIN REACH. WILL CONTINUE TO MONITOR. RECEIVED LYING ON BED ON SEMI FOWLERS POSITION, O2 AT 7L/MIN, FALL, SAFETY AND ASPIRATION PRECAUTION OBSERVED, ALERT X1, NON VERBAL PATIENT,OPENING EYES WHEN HE HEAR THE SOUND AND TOUCH.IV SITE INTACT. NO SOB NOTED,NOISY BREATHING,KEPT ON OBSERVATION.CALL LIGHT WITHIN REACH.
[2017-03-12 20:00] VITALS: BP 110/66
[2017-03-12] MEDS: PANTOPRAZOLE 40 MG VIAL IV SCH (20:07)
--- NOTE | 2017-03-12 21:15 | NUR ---
RN NOTES; FOLLOW UP WITH MOISTURE TESTER(NEGRETE0 REGARDING THE FEEDING, HE V.O. TO CONTINUE IV FLUIDS AND FOLLOW UP WITH PRIMARY DOCTOR TOMORROW.IVF ONGOING AND DUE IV/ATB GIVEN.
[2017-03-13] VITALS (55 sets, daily range): BP systolic 96–138; BP diastolic 58–89
[2017-03-13] MEDS: VANCOMYCIN 1 GM in IV D5W 250 ML IV SCH ×2 (00:40→13:40)
--- NOTE | 2017-03-13 02:51 | NUR ---
RN NOTES; TURNING AND REPOSITIONING DONE.KEPT ON CLOSE WATCH.
--- NOTE | 2017-03-13 07:00 | NUR ---
RN NOTES: DUE IV MEDICATION GIVEN,CONTINUE ON O2 INHALATION VIA FACIAL MASK AT 7L/MIN,SPO2-95%,NO SIGN OF SOB NOTED, PATIENT IS FULLY AWAKE, HAS EYE MOVEMENT AND STARING TO PERSON WHENEVER SHE IS APPROACH, OBTUNDED UNABLE TO TALK PATRICE VISIBLE EYE EXPRESSION.BLOOD SUGAR CHECK UPON [id number].ENDORSED TO NEXT SHIT FOR CONTINUITY OF CARE.
[2017-03-13] MEDS: MEROPENEM 1 G in IV NS 0.9% 100 ML IV SCH ×3 (07:04→22:03)
[2017-03-13 07:18] LABS: BASOPHILS % (AUTO) 0.1 % (0.0-2.0); HEMATOCRIT 34 % (33-45); HEMOGLOBIN 10.8 g/dL (11.5-14.8); LYMPHOCYTES % (AUTO) 7.2 % (20.0-44.0); MEAN CORPUSCULAR HEMOGLOBIN 31 PG (26.0-33.0); MEAN CORPUSCULAR HGB CONC 32 g/dl (31.0-36.0); MEAN CORPUSCULAR VOLUME 97 fL (82-100); MONOCYTES # (AUTO) 0.4 /CMM (0.1-1.30); MONOCYTES % (AUTO) 3.4 % (2.0-12.0); NEUTROPHILS # (AUTO) 11.9 /CMM (1.8-8.9); NEUTROPHILS % (AUTO) 89.3 % (43.0-81.0); PLATELET COUNT (AUTO) 197 /CMM (150-450); RDW COEFFICIENT OF VARIATION 16.2 (11.5-15.0); RED BLOOD CELL COUNT(AUTO) 3.52 MIL/uL (4.0-5.2); WHITE BLOOD COUNT (AUTO) 13.3 K/uL (4.3-11.0)
[2017-03-13 07:23] LABS: TROPONIN I 0.047 ng/mL (0.00-0.056)
[2017-03-13 07:26] LABS: ALBUMIN 1.7 g/dL (3.4-5.0); BILIRUBIN,TOTAL 0.4 mg/dL (0.2-1.0); CALCIUM, SERUM 8.1 mg/dL (8.5-10.1); CREATININE 0.4 mg/dL (0.6-1.3); POTASSIUM 3.5 mmol/L (3.5-5.1); TOTAL PROTEIN, SERUM 6.2 g/dL (6.4-8.2)
--- NOTE | 2017-03-13 08:00 | NUR ---
POTATO CHIP FRYER NOTES PATIENT NOTED WITH SOB AND LABORED BREATHING, O2 SATURATION AT 89%, RT AT BEDSIDE. DR. SCHOFIELD NOTIFIED, ORDERS FOR STAT ABG, DEEP SUCTIONING. ORDERS NOTED AND CARRIED OUT.
[2017-03-13] MEDS ORDERED: FUROSEMIDE 40 MG/4 ML VIAL IV ONE (09:00)
--- NOTE | 2017-03-13 09:00 | NUR ---
DEHYDROGENATION CONVERTER OPERATOR NOTES RT AT BEDSIDE ATTEMPTING TO GET ABG UNABLE TO OBTAINED, ANOTHER RT WILL TRY.
--- NOTE | 2017-03-13 09:15 | NUR ---
ICE SCULPTOR NOTES RECEIVED CRITICAL ABG RESULTS, PAGED DR. SCHOFIELD WAITING FOR CALL BACK. PATIENT IN BED ALERT, EYES OPEN TO NAME, TOUCH, AND PAIN. NOTED WITH LABORED BREATHING VS WNL. RT AT BEDSIDE PERFORMING DEEP SUCTIONING. O2 SATURATION 96%. WILL CONTINUE TO MONITOR CLOSELY.
[2017-03-13 09:16] LABS: ABG BASE EXCESS 6.5 mmol/L; ABG OXYGEN SATURATION 97.9 % (92.0-98.5); ABG PCO2 72.4 mmHg (35.0-45.0); ABG PH 7.301 (7.350-7.450); ABG PO2 134.2 mmHg (75.0-100.0); AaDO2 494.2 mmHg; COHb 0.3 % (0.5-1.5); MetHb 0.4 % (0.0-1.5); O2Hb 97.2 % (94.0-97.0); SITE, ABG Right Radial
--- NOTE | 2017-03-13 09:30 | NUR ---
TABLET MACHINE OPERATOR NOTES PATIENT SEEN AND EVALUATED BY DR. CANALES ABG RESULTS RELAYED TO DR. CANALES. ORDERS OBTAINED FOR ALBUTEROL AND ATROVENT Q4 HOURS, SOLUMEDROL , HAVE PATIENT ON 2L VIA NASAL CANNULA, MAINTAIN OXYGEN SATURATION ABOVE 88%, REPEAT ABG IN 2 HOURS. TRANSFER PATIENT TO ICU. ORDER NOTED AND CARRIED OUT.
[2017-03-13] MEDS: PANTOPRAZOLE 40 MG VIAL IV SCH (09:37)
--- NOTE | 2017-03-13 09:40 | NUR ---
ASSISTANT FINANCE DIRECTOR NOTES PATIENT TRANSFERRED TO ICU REPORT GIVEN TO DOMENIC AT BEDSIDE.
--- NOTE | 2017-03-13 10:35 | NUR ---
agricultural crop farm manager received pt from 3w awake alert, obtunded tracks with eyes does not follow commands, pt is on 6l face mask removed placed 2l nc as ordered p/dr. Rodríguez, abg orders received to be drawn at 1200pm provided nasotracheal suctioning brown blood tinged, abd soft active bowl sounds no bm, iv access patent infusing fluids, pt has generalized edema, fall precautions taken will monitor.
[2017-03-13] MEDS: methylPREDNISolone SOD SUCC 40 MG/ML VIAL IV SCH ×2 (10:49→16:44)
[2017-03-13] MEDS: IV NS 0.9% 1,000 ML IV PRN (10:50)
[2017-03-13] MEDS: ALBUTEROL HALF STRENGTH 1.25 MG/3 ML VIAL.NEB NEB SCH ×4 (10:53→23:40)
[2017-03-13] MEDS: IPRATROPIUM NEB FS 0.5 MG/2.5 ML AMPUL.NEB NEB SCH ×4 (10:53→23:39)
[2017-03-13] MEDS: ACETYLCYSTEINE 10% SOLN 400 MG/4 ML VIAL NEB SCH ×2 (10:53→16:22)
--- NOTE | 2017-03-13 11:00 | NUR ---
SENIOR CLINICIAN PT IN BED AOX1 DOES NOT FOLLOW COMMANDS UNABLE TO SWALLOW, PT HAS COPIOUS AMOUNT OF SECRETIONS UNABLE TO CLEAR, RT AT BEDSIDE FREDO AND STEVIE ASKED TO GIVE BREATHING TREATMENT AND DEEP SUCTIONING RT AWARE WILL FOLLOW ORDERS.
[2017-03-13 12:29] LABS: ABG BASE EXCESS 4.8 mmol/L; ABG OXYGEN SATURATION 88.9 % (92.0-98.5); ABG PCO2 45.4 mmHg (35.0-45.0); ABG PH 7.434 (7.350-7.450); ABG PO2 51.1 mmHg (75.0-100.0); COHb 0.4 % (0.5-1.5); MetHb 0.6 % (0.0-1.5); SITE, ABG Right Radial
[2017-03-13] MEDS: ENOXAPARIN SODIUM 40 MG/0.4 ML DISP.SYRIN SQ SCH (16:48)
--- NOTE | 2017-03-13 20:00 | NUR ---
received pt from day shift, a/o x1, lethargic, SR, ST, on 3L 02 sat 90%, keep sat 88-90% per Dr. Rodríguez, NPO, aspiration precautions, GT clamped, diaper on, v/s stable no pain, talked to daughter Shayla, she is aware of pt condition.
[2017-03-14] VITALS (37 sets, daily range): BP systolic 100–139; BP diastolic 55–88
--- NOTE | 2017-03-14 00:42 | NUR ---
pt is resting in the bed, a/o x1, SR, on 3L 02, sat well, v/s stable, no pain, pt turned and repositioned q2hrs.
[2017-03-14] MEDS: VANCOMYCIN 1 GM in IV D5W 250 ML IV SCH ×2 (00:56→12:37)
[2017-03-14] MEDS: IPRATROPIUM NEB FS 0.5 MG/2.5 ML AMPUL.NEB NEB SCH ×6 (03:43→23:11)
[2017-03-14] MEDS: ALBUTEROL HALF STRENGTH 1.25 MG/3 ML VIAL.NEB NEB SCH ×6 (03:43→23:11)
--- NOTE | 2017-03-14 04:17 | NUR ---
pt is resting in the bed, v/s stable, no pain, pt cleaned, changed and repositioned q2hrs.
[2017-03-14 05:25] LABS: CALCIUM, SERUM 8.7 mg/dL (8.5-10.1); CREATININE 0.5 mg/dL (0.6-1.3); POTASSIUM 3.6 mmol/L (3.5-5.1)
[2017-03-14] MEDS: MEROPENEM 1 G in IV NS 0.9% 100 ML IV SCH ×3 (06:01→22:43)
[2017-03-14] MEDS ORDERED: Z GUARD REMEDY 2 OZ OINT TP PRN (07:00)
--- NOTE | 2017-03-14 07:03 | NUR ---
WOUND CARE CONSULT PATIENT SEEN AND SKIN INTEGRITY ASSESSMENT DONE. PATIENT WITH DAYA AT 12. PLEASE SEE WOUND CARE NURSE ASSESSMENT IN [facility] FOR TODAY ALONG WITH ALL RECOMMENDATIONS. RECOMMEND TURNING SCHED Q 2 HOURS PATIENT CONDITION PERMITS AND BILATERAL HEEL FLOATING. Z GUARD FOR SKIN/MOISTURE MANAGMENT. ALL SKIN MANAGMENT DISCUSSED WITH NURSING AT THE BEDSIDE. PATIENT ON ESEQUIEL ISOFLEX LOW AIRLOSS SPECIALTY BED FOR SKIN MANAGMENT WITH LOW DAYA. MD IN AGREEMENT WITH PLAN OF CARE. Addendum: 03/14/17 at 0705 by TANNER PEARL WNDNU Amended: Links added.
--- NOTE | 2017-03-14 07:15 | NUR ---
RN INITIAL NOTES: REC'D PT AWAKE ON BED, ALERT, FOLLOWS TRACK, NON VERBAL. ON O2/NC AT 3LPM, SATURATING AT 94%, TACHYPNEIC, GRUNTS. ON TELEMONITOR, SR/ST. HAS GT PATENT & INTACT, CLAMPED. HAS PAULINO MIDLINE AMD L HAND G20, SL, BOTH FLUSHED, PATENT & INTACT W/ NO S/SX INFECTION/INFILTRATION NOTED. SECRETIONS SUCTIONED C/O RT. PROVIDED COMFORT & SAFETY MEASURES. BED KEPT LOW IN LOCKED POS. CALL LIGHT W/IN REACH. WILL CONTINUE TO MONITOR AND ATTEND NEEDS.
[2017-03-14] MEDS: ACETYLCYSTEINE 10% SOLN 400 MG/4 ML VIAL NEB SCH ×2 (07:38→15:51)
[2017-03-14] MEDS: Z GUARD REMEDY 2 OZ OINT TP SCH (08:40)
[2017-03-14] MEDS: methylPREDNISolone SOD SUCC 40 MG/ML VIAL IV SCH ×2 (08:40→17:24)
[2017-03-14] MEDS: PANTOPRAZOLE 40 MG VIAL IV SCH (08:40)
--- NOTE | 2017-03-14 14:30 | NUR ---
HOMAR NOTES; PER DR. CHANDU KEN TO START TUBE FEEDING GLYTROL 70 CC/HR. Addendum: 03/14/17 at 1453 by LATONIA WHITE RN ADDENDUM: PER DO HAILEE ACCUCHECK EVERY 6 HOURS WHILE ON TUBE FEEDING W/ MILD SLIDING SCALE. Addendum: 03/14/17 at 1753 by LATONIA WHITE RN ADDENDUM: PER JESUS MANUEL STEPHEN TO DC CURRENT IVF. TUBE FEEDING STARTED.
[2017-03-14] MEDS ORDERED: DEXTROSE 50%-WATER 50 ML DISP.SYRIN IV PRN (15:00)
[2017-03-14] MEDS: GLYTROL 1,000 ML BAG GT PRN (17:22)
[2017-03-14] MEDS: INSULIN REGULAR, HUMAN 100 UNIT/ML 3 ML VIAL SQ PRN ×2 (17:24→23:05)
[2017-03-14] MEDS: BLOOD SUGAR DIAGNOSTIC 1 EACH STRIP IN SCH ×2 (17:25→23:02)
--- NOTE | 2017-03-14 19:00 | NUR ---
RN CLOSING NOTES: NO ACUTE CHANGES NOTED W/IN SHIFT. PT TOLERATED O2/NC AT 3LPM, SATURATION KEPT >88%. ON TELEMONITOR, STILL SR/ST. PT STARTED ON GT FEEDING GLYTROL 70CC/HR (INITIALLY PUT ON 30CC/HR), NO RESIDUAL NOTED. PAULINO MIDLINE AND L HAND G20, SL, KEPT PATENT & INTACT W/ NO S/SX INFECTION/INFILTRATION NOTED. SUCTIONED SECRETIONS. KEPT WELL RESTED. NEEDS ATTENDED. BED KEPT LOW IN LOCKED POS. CALL LIGHT W/IN REACH. ENDORSED TO PM RN FOR KANE.
--- NOTE | 2017-03-14 19:37 | NUR ---
RN:ICU OF: PT RECEIVED IN BED OPENS EYES SPONTANEOUSLY. PT NONVERBAL BUT DOES TRACK. O2 SAT 88-90% ON 3 LITERS VIA NC. PER DAYSHIFT THAT THIS O2 SAT IS OK FOR THIS PATIENT. TF STARTED WILL INCREASE PT TOLERATES TO A GOAL OF 70ML/HR. PT ST ON TELE. ASPIRATION PRECAUTIONS IN PLACE. VSS. WILL CONTINUE TO MONITOR CLOSELY.
[2017-03-14] MEDS: ENOXAPARIN SODIUM 40 MG/0.4 ML DISP.SYRIN SQ SCH (20:29)
[2017-03-15] VITALS (15 sets, daily range): BP systolic 91–123; BP diastolic 53–78
--- NOTE | 2017-03-15 00:48 | NUR ---
RN:ICU OF: NO SIGNIFICANT CHANGES IT PT CONDITION. COMPLETE BED BATH PERFORMED. O2 SAT RANGES FROM 89-96% ON 3 LITERS. WILL CONTINUE TO MONITOR CLOSELY.
[2017-03-15] MEDS: VANCOMYCIN 1 GM in IV D5W 250 ML IV SCH ×2 (01:20→14:33)
[2017-03-15] MEDS: IPRATROPIUM NEB FS 0.5 MG/2.5 ML AMPUL.NEB NEB SCH ×6 (03:20→23:49)
[2017-03-15] MEDS: ALBUTEROL HALF STRENGTH 1.25 MG/3 ML VIAL.NEB NEB SCH ×6 (03:20→23:49)
[2017-03-15 05:03] LABS: BASOPHILS % (AUTO) 0.1 % (0.0-2.0); HEMATOCRIT 37 % (33-45); HEMOGLOBIN 11.9 g/dL (11.5-14.8); LYMPHOCYTES # (AUTO) 1.1 /CMM (0.8-4.8); LYMPHOCYTES % (AUTO) 10.5 % (20.0-44.0); MEAN CORPUSCULAR HEMOGLOBIN 31 PG (26.0-33.0); MEAN CORPUSCULAR HGB CONC 32 g/dl (31.0-36.0); MEAN CORPUSCULAR VOLUME 96 fL (82-100); MONOCYTES # (AUTO) 0.4 /CMM (0.1-1.30); MONOCYTES % (AUTO) 3.7 % (2.0-12.0); NEUTROPHILS # (AUTO) 8.9 /CMM (1.8-8.9); NEUTROPHILS % (AUTO) 85.7 % (43.0-81.0); PLATELET COUNT (AUTO) 207 /CMM (150-450); RDW COEFFICIENT OF VARIATION 15.6 (11.5-15.0); RED BLOOD CELL COUNT(AUTO) 3.87 MIL/uL (4.0-5.2); WHITE BLOOD COUNT (AUTO) 10.4 K/uL (4.3-11.0)
[2017-03-15] MEDS: BLOOD SUGAR DIAGNOSTIC 1 EACH STRIP IN SCH ×4 (05:08→23:47)
[2017-03-15] MEDS: INSULIN REGULAR, HUMAN 100 UNIT/ML 3 ML VIAL SQ PRN ×4 (05:09→23:51)
[2017-03-15 05:10] LABS: CALCIUM, SERUM 8.5 mg/dL (8.5-10.1); CREATININE 0.5 mg/dL (0.6-1.3); PHOSPHORUS 1.8 mg/dL (2.5-4.9); POTASSIUM 3.9 mmol/L (3.5-5.1)
[2017-03-15] MEDS: MEROPENEM 1 G in IV NS 0.9% 100 ML IV SCH ×3 (06:03→23:47)
--- NOTE | 2017-03-15 06:49 | NUR ---
RN:ICU OF: NO SIGNIFICANT CHANGES IN PT CONDITION. O2 SAT REMAINS WITH IN SPECIFIED PARAMETERS GIVEN BY PULMONARY MD, 88-90% ON 2 L NC. ASPIRATION PRECAUTIONS IN PLACE. WILL CONTINUE TO MONITOR CLOSELY.
--- NOTE | 2017-03-15 08:00 | NUR ---
ICU/RN AM SHIFT INITIAL NOTES RECEIVED PT AWAKE, NO ACUTE DISTRESS OR GRIMACING NOTED. PT IS NON-VERBAL, EYES TRACTS. ON 3L O2 VIA N/C SATURATING @ 91%, AT TIMES GRUNTS, LUNG SOUNDS CLEAR. ON TELE MONITORING WITH SINUS RHYTHM, HR 91. MID LINE ON TKO, NO S/S OF INFECTION. GTF ON GOING, NOTED WITH 60CC RESIDUAL, FEEDING HELD AT THIS TIME. PT NOTED WITH GENERALIZED EDEMA. PT IS COMFORTABLE AT THIS TIME. SCHEDULED AM MEDS TO BE GIVEN. CL WITHIN REACHED AND SAFETY MAINTAINED. ON GOING MONITORING.
[2017-03-15] MEDS: ACETYLCYSTEINE 10% SOLN 400 MG/4 ML VIAL NEB SCH ×2 (09:00→17:00)
[2017-03-15] MEDS: methylPREDNISolone SOD SUCC 40 MG/ML VIAL IV SCH ×2 (09:05→16:26)
[2017-03-15] MEDS: PANTOPRAZOLE 40 MG VIAL IV SCH (09:05)
[2017-03-15] MEDS: Z GUARD REMEDY 2 OZ OINT TP SCH (09:05)
--- NOTE | 2017-03-15 09:12 | NUR ---
TELE1/RN RESIDUAL CHECK CHECKED GASTRIC RESIDUAL, FEEDING OFF FOR AN HOUR, STILL WITH 60CC RESIDUAL, CHARGE NURSE MADE AWARE. MONITORING CONTINUED.
--- NOTE | 2017-03-15 10:24 | NUR ---
TELE1/RN PSYCHIATRIC OF CARE REPORT GIVEN TO NURSE SONI TO CONTINUE CARE.
--- NOTE | 2017-03-15 10:30 | NUR ---
RN NOTES RECEIVED PT FROM JULIANN IN STABLE CONDITION. PT IS NONVERBAL, OPENS EYES AND TRACKS. ON 3L NS NO SOB OR DISTRESS NOTED. GTUBE RESIDUAL CHECKED AGAIN, 10CC, TUBE FEEDING RESTARTED AT LOWER RATE OF 40ML/HR. WILL RECHECK RESIDUAL. PAULINO MIDLINE AND LHAND 20GUAGE IV SITE DRY AND INTACT. BED LOCKED AND IN LOWEST POSITION, CALL LIGHT WITHIN REACH, SIDE RAILS UPX3 WLL CONT TO MONITOR.
[2017-03-15] MEDS ORDERED: NEUTRA PHOS 1 POWD.PACKET NG ONE (14:30)
[2017-03-15] MEDS: GLYTROL 1,000 ML BAG GT PRN (17:52)
--- NOTE | 2017-03-15 18:40 | NUR ---
RN NOTES PT RESTING IN BED NO SOB OR DISTRESS NOTED. NO SIGNIFICANT CHANGES THROUGHOUT THE SHIFT. SR ON THE MONITOR. LAST GTUBE RESIDUAL 10CC. GTUBE FEEDING RATE AT 40CC/HR, DR TRUJILLO AWARE. BED LOCKED AND IN LOWEST POSITION, CALL LIGHT WITHIN REACH, SIDE RAILS UPX3, WILL ENDORSE TO ONCOMING SHIFT.
--- NOTE | 2017-03-15 19:05 | NUR ---
RN OPENING NOTES RECEIVED REPORT FROM MICHAEL GRAF. PATIENT AWAKE BUT NON-VERBAL & UNABLE TO MAKE NEEDS KNOWN. RESPONSIVE TO VERBAL & TACTILE STIMULI, EYES TRACK. BREATHING EVEN & UNLABORED, ON O2 2L VIA NC. NO SOB OR RESPIRATORY DISTRESS NOTED. ON TELE SINUS TACH IN THE 100S. G-TUBE INTACT & FLUSHING WELL. GTF OFF @ THIS TIME D/T LARGE RESIDUAL NOTED. RIGHT UPPER ARM MIDLINE INTACT W/ DRESSING CDI & ON TKO. NO S/S OF PAIN OR DISCOMFORT @ THIS TIME. SAFETY MEASURES IN PLACE W/ SIDE RAILS UP & BED LOCKED IN LOWEST POSITION. WILL CONTINUE TO MONITOR.
[2017-03-15] MEDS: ENOXAPARIN SODIUM 40 MG/0.4 ML DISP.SYRIN SQ SCH (20:35)
[2017-03-15] MEDS: LINEZOLID 600 MG TABLET PO SCH (20:37)
[2017-03-16] VITALS (8 sets, daily range): BP systolic 107–134; BP diastolic 78–80
--- NOTE | 2017-03-16 | NUR ---
RN NOTES NO RESIDUAL NOTED. GTF GLYTROL RE-STARTED @ 40 ML/HR. WILL CONTINUE TO MONITOR.
[2017-03-16] MEDS: IPRATROPIUM NEB FS 0.5 MG/2.5 ML AMPUL.NEB NEB SCH ×6 (03:35→23:02)
[2017-03-16] MEDS: ALBUTEROL HALF STRENGTH 1.25 MG/3 ML VIAL.NEB NEB SCH ×6 (03:35→23:02)
[2017-03-16] MEDS: BLOOD SUGAR DIAGNOSTIC 1 EACH STRIP IN SCH ×4 (05:41→23:39)
[2017-03-16] MEDS: INSULIN REGULAR, HUMAN 100 UNIT/ML 3 ML VIAL SQ PRN ×2 (05:41→23:39)
[2017-03-16] MEDS: MEROPENEM 1 G in IV NS 0.9% 100 ML IV SCH ×3 (06:33→23:39)
--- NOTE | 2017-03-16 06:43 | NUR ---
RN CLOSING NOTES NO ACUTE RESPIRATORY DISTRESS THROUGHOUT SHIFT, REMAINED ON O2 2L VIA NC. GTF RE-STARTED D/T NO FURTHER RESIDUALS NOTED. TOLERATING WELL @ THIS TIME. ALL DUE MEDS GIVEN. KEPT CLEAN & DRY. WILL ENDORSE KANE TO AM RN.
--- NOTE | 2017-03-16 07:30 | NUR ---
PATIENT AWAKE BUT NON-VERBAL & UNABLE TO MAKE NEEDS KNOWN. RESPONSIVE TO VERBAL & TACTILE STIMULI, EYES TRACK. BREATHING EVEN & UNLABORED, ON O2 2L VIA NC. NO SOB OR RESPIRATORY DISTRESS NOTED. ON TELE SINUS TACH IN THE 100S. G-TUBE INTACT & FLUSHING WELL. GTF OFF @ THIS TIME D/T LARGE RESIDUAL NOTED. RIGHT UPPER ARM MIDLINE INTACT W/ DRESSING CDI & ON TKO. NO S/S OF PAIN OR DISCOMFORT @ THIS TIME. SAFETY MEASURES IN PLACE W/ SIDE RAILS UP & BED LOCKED IN LOWEST POSITION. WILL CONTINUE TO MONITOR.
[2017-03-16] MEDS: ACETYLCYSTEINE 10% SOLN 400 MG/4 ML VIAL NEB SCH ×2 (07:37→17:00)
[2017-03-16 08:10] LABS: BASOPHILS % (AUTO) 0.2 % (0.0-2.0); EOSINOPHILS % (AUTO) 0.2 % (0.0-6.0); HEMATOCRIT 36 % (33-45); HEMOGLOBIN 11.4 g/dL (11.5-14.8); LYMPHOCYTES # (AUTO) 2.2 /CMM (0.8-4.8); LYMPHOCYTES % (AUTO) 19.6 % (20.0-44.0); MEAN CORPUSCULAR HEMOGLOBIN 30 PG (26.0-33.0); MEAN CORPUSCULAR HGB CONC 32 g/dl (31.0-36.0); MEAN CORPUSCULAR VOLUME 96 fL (82-100); MONOCYTES # (AUTO) 0.5 /CMM (0.1-1.30); MONOCYTES % (AUTO) 4.9 % (2.0-12.0); NEUTROPHILS # (AUTO) 8.4 /CMM (1.8-8.9); NEUTROPHILS % (AUTO) 75.1 % (43.0-81.0); PLATELET COUNT (AUTO) 313 /CMM (150-450); RDW COEFFICIENT OF VARIATION 16.2 (11.5-15.0); RED BLOOD CELL COUNT(AUTO) 3.75 MIL/uL (4.0-5.2); WHITE BLOOD COUNT (AUTO) 11.2 K/uL (4.3-11.0)
[2017-03-16 08:27] LABS: CALCIUM, SERUM 8.5 mg/dL (8.5-10.1); CREATININE 0.4 mg/dL (0.6-1.3); MAGNESIUM 2.2 mg/dL (1.8-2.4); PHOSPHORUS 2.3 mg/dL (2.5-4.9); POTASSIUM 4.5 mmol/L (3.5-5.1)
[2017-03-16] MEDS: LINEZOLID 600 MG TABLET PO SCH ×2 (08:39→21:56)
[2017-03-16] MEDS: methylPREDNISolone SOD SUCC 40 MG/ML VIAL IV SCH ×2 (08:39→16:56)
[2017-03-16] MEDS: PANTOPRAZOLE 40 MG VIAL IV SCH (08:40)
[2017-03-16] MEDS: Z GUARD REMEDY 2 OZ OINT TP SCH (09:46)
[2017-03-16] MEDS ORDERED: NEUTRA PHOS 1 POWD.PACKET NG ONE (16:30)
[2017-03-16] MEDS: LACTOBACILLUS RHAMNOSUS GG 1 EACH CAP.SPRINK GT SCH (16:56)
--- NOTE | 2017-03-16 19:30 | NUR ---
DISABILITY HEARING OFFICER INITIAL NOTES RECEIVED PATIENT, NON-VERBAL, AWAKE, RESPONSIVE TO TOUCH. NOTED WITH GENERALIZED EDEMA. RESPIRATIONS EVEN AND UNLABORED ON 2LPMO2 VIA NC. ON TELE MONITOR ST 108. WITH GT PATENT AND INTACT, MINIMAL RESIDUAL NOTED. WITH PAULINO MIDLINE PATENT AND INTACT, TKO. HOB ELEVATED. SIDE RAILS UP AND LOCKED. BED KEPT AT LOWEST POSITION. ISOLATION PRECAUTIONS OBSERVED. CALL LIGHT KEPT WITHIN EASY REACH. WILL CONTINUE TO MONITOR.
[2017-03-16] MEDS: ENOXAPARIN SODIUM 40 MG/0.4 ML DISP.SYRIN SQ SCH (21:56)
[2017-03-16] MEDS: GLYTROL 1,000 ML BAG GT PRN (22:11)
[2017-03-17] VITALS (7 sets, daily range): BP systolic 104–140; BP diastolic 63–88
[2017-03-17] MEDS: IPRATROPIUM NEB FS 0.5 MG/2.5 ML AMPUL.NEB NEB SCH ×6 (03:11→23:35)
[2017-03-17] MEDS: ALBUTEROL HALF STRENGTH 1.25 MG/3 ML VIAL.NEB NEB SCH ×6 (03:11→23:35)
[2017-03-17] MEDS: BLOOD SUGAR DIAGNOSTIC 1 EACH STRIP IN SCH ×3 (06:40→17:33)
[2017-03-17 06:41] LABS: HEMATOCRIT 36 % (33-45); HEMOGLOBIN 11.9 g/dL (11.5-14.8); LYMPHOCYTES # (AUTO) 1.1 /CMM (0.8-4.8); LYMPHOCYTES % (AUTO) 9.8 % (20.0-44.0); MEAN CORPUSCULAR HEMOGLOBIN 31 PG (26.0-33.0); MEAN CORPUSCULAR HGB CONC 33 g/dl (31.0-36.0); MEAN CORPUSCULAR VOLUME 96 fL (82-100); MONOCYTES # (AUTO) 0.4 /CMM (0.1-1.30); MONOCYTES % (AUTO) 3.4 % (2.0-12.0); NEUTROPHILS # (AUTO) 9.9 /CMM (1.8-8.9); NEUTROPHILS % (AUTO) 86.8 % (43.0-81.0); PLATELET COUNT (AUTO) 316 /CMM (150-450); RED BLOOD CELL COUNT(AUTO) 3.78 MIL/uL (4.0-5.2); WHITE BLOOD COUNT (AUTO) 11.4 K/uL (4.3-11.0)
[2017-03-17] MEDS: INSULIN REGULAR, HUMAN 100 UNIT/ML 3 ML VIAL SQ PRN ×3 (06:41→17:38)
[2017-03-17 07:06] LABS: CALCIUM, SERUM 8.5 mg/dL (8.5-10.1); CREATININE 0.4 mg/dL (0.6-1.3); MAGNESIUM 2.4 mg/dL (1.8-2.4); PHOSPHORUS 3.1 mg/dL (2.5-4.9); POTASSIUM 4.8 mmol/L (3.5-5.1)
--- NOTE | 2017-03-17 07:30 | NUR ---
RN NOTES RECEIVED PATIENT IN BED ASLEEP WITH BREATHING NORMAL, EVEN AND UNLABORED. NO SOB NOTED. ON 4L O2 VIA NC, SATURATING WELL. NO ACUTE DISTRESS NOTED. TELE MONITOR REVEALS SR, HR=90 IV PAULINO MIDLINE IS PATENT AND INTACT. ON GT FEED, TOLERATED WELL. NO RESIDUAL NOTED. ASPIRATION PRECAUTION TAKEN. KEPT CLEAN, DRY AND COMFORTABLE. ALL NEEDS ATTENDED. CALL LIGHT WITH IN REACH. WILL CONT TO MONITOR.
--- NOTE | 2017-03-17 07:53 | NUR ---
GIS GEOGRAPHER CLOSING NOTES NO SIGNIFICANT CHANGES OVERNIGHT. PATIENT ON 4LPMO2 VIA NC, SPO2 94-95%. SKIN WARM AND DRY TO TOUCH. SUCTIONED NEEDED, TOLERATED WELL. TOLERATING GTF AT 60ML/HR. INFORMED AM NURSE WITH GOAL RATE OF 70ML/HR. KEPT CLEAN AND DRY, TURNED AND REPOSITIONED Q2 AND PRN. SIDE RAILS UP AND LOCKED. ALL DUE MEDS GIVEN. BED KEPT AT LOWEST POSITION. HOB KEPT ELEVATED. CONTINUITY OF CARE ENDORSED TO AM NURSE.
[2017-03-17] MEDS: MEROPENEM 1 G in IV NS 0.9% 100 ML IV SCH ×3 (07:59→22:22)
[2017-03-17] MEDS: ACETYLCYSTEINE 10% SOLN 400 MG/4 ML VIAL NEB SCH ×3 (08:02→23:35)
[2017-03-17] MEDS: PANTOPRAZOLE 40 MG VIAL IV SCH (09:40)
[2017-03-17] MEDS: LINEZOLID 600 MG TABLET PO SCH ×2 (09:40→21:04)
[2017-03-17] MEDS: LACTOBACILLUS RHAMNOSUS GG 1 EACH CAP.SPRINK GT SCH ×2 (09:40→17:31)
[2017-03-17] MEDS: methylPREDNISolone SOD SUCC 40 MG/ML VIAL IV SCH ×2 (09:40→17:31)
[2017-03-17] MEDS: Z GUARD REMEDY 2 OZ OINT TP SCH (09:42)
--- NOTE | 2017-03-17 18:58 | NUR ---
RN NOTES PATIENT ENDORSED TO NEXT SHIFT IN STABLE CONDITION WITH BREATHING NORMAL, EVEN AND UNLABORED. NO SOB NOTED. NO ACUTE DISTRESS NOTED. KEPT CLEAN, DRY AND COMFORTABLE. ALL NEEDS ATTENDED. SAFETY MEASURE OBSERVED. CALL LIGHT WITH IN REACH. WILL CONT TO MONITOR.
[2017-03-17] MEDS: ENOXAPARIN SODIUM 40 MG/0.4 ML DISP.SYRIN SQ SCH (21:05)
[2017-03-17] MEDS: GLYTROL 1,000 ML BAG GT PRN (22:23)
[2017-03-18] VITALS: BP 140/85
[2017-03-18] MEDS: INSULIN REGULAR, HUMAN 100 UNIT/ML 3 ML VIAL SQ PRN ×2 (00:04→06:04)
[2017-03-18] MEDS: ALBUTEROL HALF STRENGTH 1.25 MG/3 ML VIAL.NEB NEB SCH ×5 (03:45→20:22)
[2017-03-18] MEDS: IPRATROPIUM NEB FS 0.5 MG/2.5 ML AMPUL.NEB NEB SCH ×5 (03:55→20:22)
[2017-03-18 04:00] VITALS: BP 128/74
[2017-03-18] MEDS: MEROPENEM 1 G in IV NS 0.9% 100 ML IV SCH ×3 (06:01→22:17)
[2017-03-18] MEDS: BLOOD SUGAR DIAGNOSTIC 1 EACH STRIP IN SCH ×5 (06:03→23:59)
[2017-03-18 06:06] LABS: CALCIUM, SERUM 8.3 mg/dL (8.5-10.1); CREATININE 0.4 mg/dL (0.6-1.3); POTASSIUM 4.9 mmol/L (3.5-5.1)
--- NOTE | 2017-03-18 07:24 | NUR ---
RN NOTES RECEIVED PT FROM CELL ATTENDANT HELPER IN STABLE CONDITION. A&0X1, NONVERBAL. ON 4L NS, NO SOB OR DISTRESS NOTED. SR ON THE TELE MONITOR HR 86. GTUBE FEEDING AT 70ML/HR, RESIDUAL ABOUT 5ML. PAULINO MIDLINE DRESSING DRY AND INTACT. BED LOCKED AND IN LOWEST POSITION, CALL LIGHT WITHIN REACH, WILL CONT TO MONITOR.
[2017-03-18 08:00] VITALS: BP 119/70
[2017-03-18] MEDS: PANTOPRAZOLE 40 MG VIAL IV SCH (08:20)
[2017-03-18] MEDS: LACTOBACILLUS RHAMNOSUS GG 1 EACH CAP.SPRINK GT SCH ×2 (08:20→16:12)
[2017-03-18] MEDS: Z GUARD REMEDY 2 OZ OINT TP SCH (08:20)
[2017-03-18] MEDS: LINEZOLID 600 MG TABLET PO SCH ×2 (08:20→22:12)
[2017-03-18] MEDS: methylPREDNISolone SOD SUCC 40 MG/ML VIAL IV SCH (08:20)
[2017-03-18] MEDS: ACETYLCYSTEINE 10% SOLN 400 MG/4 ML VIAL NEB SCH ×2 (09:00→15:53)
[2017-03-18 16:00] VITALS: BP 115/76
[2017-03-18] MEDS: GLYTROL 1,000 ML BAG GT PRN (16:13)
--- NOTE | 2017-03-18 18:13 | NUR ---
RN NOTES PT RESTING IN BED TOLERATING NASAL CANNULA NO SOB OR DISTRESS NOTED. TOLERATING GTUBE FEEDING. PT IN STABLE CONDITION THROUGHOUT THE SHIFT. SR ON THE TELE MONITOR. ALL NEEDS MET. BED LOCKED AND IN LOWEST POSITION, CALL LIGHT WITHIN REACH, SIDE RAILS UPX3 WILL ENDORSE TO ONCOMING SHIFT.
[2017-03-18 20:00] VITALS: BP 120/74
--- NOTE | 2017-03-18 20:00 | NUR ---
RN INITIAL NOTES; PT ON THE BED WITHOUT ANY DISTRESS, PT IS AWAKE AND NON VERBAL. BREATHING EVEN AND UNLABORED ON 4 LPM VIA NC, PAULINO MIDLINE INTACT AND PATENT . G TUBE INTACT AND PATENT WITH CONTINUE GLYTROL @ 70 MLS/HR. RESIDUAL NOTED MORE THAN 150 MLS. FEEDING HELD AT THIS TIME . WILL RECHECK IN 2 HRS . INCONTINENT TO BOWEL/BLADDER . BED IN THE LOWEST/LOCKED POSITION . SAFETY MEASURES APPLIED . WILL TURN AND REPOSITION Q2H AND NEEDED. WILL CONTINUE TO MONITOR .
[2017-03-18] MEDS: ENOXAPARIN SODIUM 40 MG/0.4 ML DISP.SYRIN SQ SCH (22:13)
--- NOTE | 2017-03-18 22:30 | NUR ---
RN NOTE; RECHECKED RESIDUAL , RESIDUAL NOTED 10 ML , RESUMED FEEDING . WILL CONTINUE TO MONITOR .
[2017-03-19] MEDS: ALBUTEROL HALF STRENGTH 1.25 MG/3 ML VIAL.NEB NEB SCH ×7 (00:06→23:07)
[2017-03-19] MEDS: IPRATROPIUM NEB FS 0.5 MG/2.5 ML AMPUL.NEB NEB SCH ×7 (00:06→23:07)
[2017-03-19 04:00] VITALS: BP 148/89
[2017-03-19] MEDS: MEROPENEM 1 G in IV NS 0.9% 100 ML IV SCH ×3 (06:11→23:08)
[2017-03-19] MEDS: BLOOD SUGAR DIAGNOSTIC 1 EACH STRIP IN SCH ×4 (06:14→23:08)
--- NOTE | 2017-03-19 06:46 | NUR ---
RN EOS NOTE; PT REMAINED STABLE DURING THE SHIFT, NO ANY DISTRESS NOTED. G TUBE FEEDING TOLERATED WELL. TURNED AND REPOSITIONED Q2H AND NEEDED . TOTAL CARE RENDERED . WILL ENDORSE TO NEXT SHIFT RN FOR CONTINUITY OF CARE.
[2017-03-19 08:00] VITALS: BP 90/46
--- NOTE | 2017-03-19 08:00 | NUR ---
RN NOTE PATIENT IS SOB, RR 40, O2 SAT 90% WITH NON-REBREATHER MASK O2 15L. ENCOURAGED DEEP BREATHING. ELEVATED HOB. OBTAINED ORDER FOR ABG STAT. TRANSFERRED PATIENT TO [facility] AND HANDED OFF REPORT TO ICU NURSE FOR GREATER LEVEL OF CARE. RT AT BED SIDE. PATIENT LOC AT BASELINE. FOLLOWS STIMULUS WITH EYES, NON VERBAL.
--- NOTE | 2017-03-19 08:10 | NUR ---
Assumed care of patient in 107, currently tachypneic @ 24, sat 81-88%. Baseline neuro status: nonverbal, non communicative. Her eyes is currently wide open and looks in distress. ABG done and sent to Dr. Rodríguez per RT [place] awaits order Addendum: 03/19/17 at 1019 by PATRICIO CALLES RN RT at bedside giving breathing treatment. now on nonrebreather mask.
[2017-03-19 08:28] LABS: ABG OXYGEN SATURATION 81.8 % (92.0-98.5); ABG PH 7.456 (7.350-7.450); ABG PO2 43.3 mmHg (75.0-100.0); COHb 0.3 % (0.5-1.5); MetHb 1.2 % (0.0-1.5); O2Hb 80.6 % (94.0-97.0); SITE, ABG Right Radial; VENT MODE, BG SIMPLE MASK
[2017-03-19] MEDS: ACETYLCYSTEINE 10% SOLN 400 MG/4 ML VIAL NEB SCH (08:34)
[2017-03-19] MEDS: LINEZOLID 600 MG TABLET PO SCH ×2 (09:33→21:25)
[2017-03-19] MEDS: methylPREDNISolone SOD SUCC 40 MG/ML VIAL IV SCH (09:33)
[2017-03-19] MEDS: PANTOPRAZOLE 40 MG VIAL IV SCH (09:33)
[2017-03-19] MEDS: Z GUARD REMEDY 2 OZ OINT TP SCH (09:33)
[2017-03-19] MEDS: LACTOBACILLUS RHAMNOSUS GG 1 EACH CAP.SPRINK GT SCH ×2 (09:33→16:12)
[2017-03-19 09:51] LABS: ABG BASE EXCESS 11.8 mmol/L; ABG OXYGEN SATURATION 98.9 % (92.0-98.5); ABG PCO2 60.7 mmHg (35.0-45.0); ABG PO2 250.9 mmHg (75.0-100.0); AaDO2 255.8 mmHg; COHb 0.3 % (0.5-1.5); MetHb 0.6 % (0.0-1.5); SITE, ABG Left Femoral; VENT MODE, BG NRB
[2017-03-19 09:55] LABS: CALCIUM, SERUM 8.4 mg/dL (8.5-10.1); CREATININE 0.3 mg/dL (0.6-1.3); POTASSIUM 4.6 mmol/L (3.5-5.1)
[2017-03-19 10:00] LABS: ALBUMIN 2.1 g/dL (3.4-5.0); BILIRUBIN,TOTAL 0.3 mg/dL (0.2-1.0); MAGNESIUM 2.3 mg/dL (1.8-2.4); PHOSPHORUS 2.6 mg/dL (2.5-4.9)
--- NOTE | 2017-03-19 10:00 | NUR ---
Repeat ABG done, stable. Decrease O2 to 6L Facemask. Vital signs stable. Resume feeding @ 50ml/hr.
[2017-03-19 12:00] VITALS: BP 92/49
[2017-03-19 16:00] VITALS: BP 124/78
[2017-03-19] MEDS: INSULIN REGULAR, HUMAN 100 UNIT/ML 3 ML VIAL SQ PRN ×2 (17:20→23:25)
--- NOTE | 2017-03-19 19:30 | NUR ---
[facility] RN INITIAL NOTE RECEIVED REPORT FROM ALEXANDRA GRAF. PT IN BED. AWAKE BUT NON VERBAL. LUNG SOUNDS RHONCHI. ON 4L NC. BOWEL SOUNDS PRESENT. GT PATENT AND INTACT WITH FEEDING, NO RESIDUAL. INCONTINENT TO URINE AND STOOL. IV PATENT AND INTACT. PULSES PRESENT. GENERALIZED EDEMA. BED IN LOW LOCKED POSITION. WILL CONTINUE TO MONITOR.
[2017-03-19] MEDS: GLYTROL 1,000 ML BAG GT PRN (19:38)
[2017-03-19 20:00] VITALS: BP 104/55
--- NOTE | 2017-03-19 21:00 | NUR ---
RONAN RN PT IN BED, RT AT BEDSIDE. PT DE SATURATING FOLLOWING THE BREATHING TREATMENT. PT LUNG SOUNDS CRACKLES. ABG ORDERED. WILL CONTINUE TO MONITOR.
[2017-03-19] MEDS: ENOXAPARIN SODIUM 40 MG/0.4 ML DISP.SYRIN SQ SCH (21:25)
[2017-03-19 21:36] LABS: ABG BASE EXCESS 10.2 mmol/L; ABG OXYGEN SATURATION 84.2 % (92.0-98.5); ABG PCO2 51.5 mmHg (35.0-45.0); ABG PH 7.459 (7.350-7.450); ABG PO2 47.2 mmHg (75.0-100.0); AaDO2 614.3 mmHg; COHb 0.3 % (0.5-1.5); MetHb 0.4 % (0.0-1.5); O2Hb 83.6 % (94.0-97.0); SITE, ABG Right Radial; VENT MODE, BG NRB
[2017-03-19] MEDS ORDERED: ACETYLCYSTEINE 10% SOLN 400 MG/4 ML VIAL NEB STA (21:54)
--- NOTE | 2017-03-19 23:30 | NUR ---
RONAN RN HUNG MERREM FOR 2300 DOSE. WHEN RETURNED TO ROOM, THE CONNECTOR HAD LEAKED THE ENTIRE DOSE. USED 0700 DOSE SINCE PT DID NOT RECEIVE FULL MERREM DOSE. WILL CALL PHARMACY TO REQUEST A NEW 0700 ANTIBIOTIC. CHARGE NURSE JAZMÍN AWARE.
[2017-03-20] VITALS: BP 105/69
--- NOTE | 2017-03-20 00:15 | NUR ---
RONAN RN PT CONTINUE TO DESATURATE. MARITA NUÑEZ CALLED AND MADE AWARE OF DECLINE. INFORMED JOAQUIN OF MORNING EPISODE OF DESATURATING AND THAT DR CANALES WAS AWARE. PROVIDED ABG RESULTS THAT WAS DONE DUE TO OXYGENATION AT 70'S. INFORMED JOAQUIN THAT 1700 MUCOMYST WAS NOT SCANNED AND POSSIBLY NOT GIVEN BUT COULD NOT CONFIRM BECAUSE RT IS ON A NEW SHIFT. NEW ORDERS RECEIVED, MUCOMYST NOW WITH CPT FOLLOWING TREATMENT. AND TO PROVIDE CPT WITH ALL MUCOMYST ORDERS FROM THIS POINT TO HELP CLEAR SECRETIONS. DEEP SUCTION PRN.
--- NOTE | 2017-03-20 01:30 | NUR ---
RONAN RN PT BED ASLEEP BUT AROUSABLE. PT SATING 99% ON SIMPLE MASK. TOLERATING WELL. RT AWARE OF MUCOMYST ORDERS AND CPT FOLLOWING MUCOMYST ADMINISTRATION. WILL ENDORSE TO NEXT SHIFT. WILL CONTINUE TO MONITOR.
[2017-03-20] MEDS: ALBUTEROL HALF STRENGTH 1.25 MG/3 ML VIAL.NEB NEB SCH ×7 (03:52→23:03)
[2017-03-20] MEDS: IPRATROPIUM NEB FS 0.5 MG/2.5 ML AMPUL.NEB NEB SCH ×7 (03:52→23:03)
[2017-03-20 04:00] VITALS: BP 109/64
[2017-03-20] MEDS: BLOOD SUGAR DIAGNOSTIC 1 EACH STRIP IN SCH ×4 (06:12→23:21)
[2017-03-20 06:26] LABS: BASOPHILS % (AUTO) 0.2 % (0.0-2.0); EOSINOPHILS # (AUTO) 0.1 /CMM (0.0-0.7); EOSINOPHILS % (AUTO) 0.8 % (0.0-6.0); HEMATOCRIT 38 % (33-45); HEMOGLOBIN 12.4 g/dL (11.5-14.8); LYMPHOCYTES # (AUTO) 1.7 /CMM (0.8-4.8); LYMPHOCYTES % (AUTO) 15.4 % (20.0-44.0); MEAN CORPUSCULAR HEMOGLOBIN 32 PG (26.0-33.0); MEAN CORPUSCULAR HGB CONC 33 g/dl (31.0-36.0); MEAN CORPUSCULAR VOLUME 97 fL (82-100); MONOCYTES # (AUTO) 0.4 /CMM (0.1-1.30); MONOCYTES % (AUTO) 3.3 % (2.0-12.0); NEUTROPHILS # (AUTO) 8.7 /CMM (1.8-8.9); NEUTROPHILS % (AUTO) 80.3 % (43.0-81.0); PLATELET COUNT (AUTO) 324 /CMM (150-450); RDW COEFFICIENT OF VARIATION 16.7 (11.5-15.0); RED BLOOD CELL COUNT(AUTO) 3.94 MIL/uL (4.0-5.2); WHITE BLOOD COUNT (AUTO) 10.8 K/uL (4.3-11.0)
--- NOTE | 2017-03-20 07:00 | NUR ---
RONAN INITIAL NOTE RECEIVED PT AWAKE, NON-VERBAL RESTING COMFORTABLY IN BED. ON 4L NC, RESPIRATIONS EVEN AND UNLABORED, NO SOB OR DISTRESS PRESENT. TELE MONITOR REVEALS SINUS RHYTHM, HR= 85. G-TUBE PRESENT RUNNING GLYTROL @ 60 ML/HR (GOAL IS 70 ML/HR). PAULINO MIDLINE PRESENT RUNNING NS @ TKO. SAFETY MEASURES TAKEN: BED LOCKED AND IN LOW POSITION, SIDE RAILS UP X2, BED ALARM ON AND CALL LIGHT WITHIN REACH, WILL CONTINUE TO MONITOR.
[2017-03-20 08:00] VITALS: BP 117/54
[2017-03-20] MEDS: ACETYLCYSTEINE 10% SOLN 400 MG/4 ML VIAL NEB SCH ×2 (08:15→16:08)
[2017-03-20 08:23] LABS: CALCIUM, SERUM 8.4 mg/dL (8.5-10.1); CREATININE 0.2 mg/dL (0.6-1.3); MAGNESIUM 2.3 mg/dL (1.8-2.4); PHOSPHORUS 2.8 mg/dL (2.5-4.9); POTASSIUM 4.8 mmol/L (3.5-5.1)
[2017-03-20] MEDS: LINEZOLID 600 MG TABLET PO SCH ×2 (08:25→21:42)
[2017-03-20] MEDS: PANTOPRAZOLE 40 MG VIAL IV SCH (08:25)
[2017-03-20] MEDS: LACTOBACILLUS RHAMNOSUS GG 1 EACH CAP.SPRINK GT SCH ×2 (08:25→16:02)
[2017-03-20] MEDS: methylPREDNISolone SOD SUCC 40 MG/ML VIAL IV SCH (08:25)
[2017-03-20] MEDS: Z GUARD REMEDY 2 OZ OINT TP SCH (08:26)
[2017-03-20] MEDS: MEROPENEM 1 G in IV NS 0.9% 100 ML IV SCH ×3 (08:28→23:08)
[2017-03-20 10:37] LABS: ABG BASE EXCESS 10.9 mmol/L; ABG OXYGEN SATURATION 93.8 % (92.0-98.5); ABG PCO2 51.8 mmHg (35.0-45.0); ABG PH 7.464 (7.350-7.450); ABG PO2 69.9 mmHg (75.0-100.0); AaDO2 300.9 mmHg; COHb 0.3 % (0.5-1.5); MetHb 1.1 % (0.0-1.5); O2Hb 92.5 % (94.0-97.0); SITE, ABG Left Radial; VENT MODE, BG NASAL CANNULA
[2017-03-20 12:00] VITALS: BP 92/52
[2017-03-20] MEDS: INSULIN REGULAR, HUMAN 100 UNIT/ML 3 ML VIAL SQ PRN ×3 (12:28→23:21)
[2017-03-20] MEDS: GLYTROL 1,000 ML BAG GT PRN (14:18)
[2017-03-20 16:00] VITALS: BP 98/69
[2017-03-20 20:00] VITALS: BP 121/72
--- NOTE | 2017-03-20 21:24 | NUR ---
RN NOTE. INITIAL ASSESSMENT. RECEIVED THE PT REST ON THE BED. AWAKE, ALERT, DOES NOT FOLLOW COMMANDS. PSYCHIC READER SHOWING NSR. OXYGEN 4L VIA NASAL CANNULA. SAT 98%. ACUTE DISTRESS NOTED. IV RT UPPER ARM MID LINE TKO RUNNING. HOB ELEVATED. GT INTACT. GLYTROL 70ML/H. TURN AND REPOSITION Q2H. WILL CONTINUE TO MONITOR VITALS.
[2017-03-20] MEDS: ENOXAPARIN SODIUM 40 MG/0.4 ML DISP.SYRIN SQ SCH (21:43)
[2017-03-20] MEDS ORDERED: IV NS 0.9% 250 ML IV PRN (22:30)
[2017-03-21] VITALS: BP 93/53
--- NOTE | 2017-03-21 03:00 | NUR ---
RN NOTE. AM CARE. ORAL CARE, BED BATH GIVEN. LINEN CHANGED. REMAINING SAME OXYGEN TOLERATED WELL. SAT 98%. NO ACUTE DISTRESS NOTED, SHEET ROLLER OPERATOR SHOWING NSR. IV RT UPPER ARM MIDLINE. TKO RUNNING. GT FEEDING TOLERATED WELL. HOB ELEVATED. AFEBRILE. TURN AND REPOSITION Q2H. WILL CONTINUE TO MONITOR VITALS.
[2017-03-21] MEDS: ALBUTEROL HALF STRENGTH 1.25 MG/3 ML VIAL.NEB NEB SCH ×4 (03:57→13:56)
[2017-03-21] MEDS: IPRATROPIUM NEB FS 0.5 MG/2.5 ML AMPUL.NEB NEB SCH ×4 (03:57→13:58)
[2017-03-21 04:00] VITALS: BP_SYST 101; BP_SYST 115; BP_SYST 129; BP_DIAS 64; BP_DIAS 68; BP_DIAS 69
[2017-03-21] MEDS: BLOOD SUGAR DIAGNOSTIC 1 EACH STRIP IN SCH ×3 (06:00→17:32)
[2017-03-21] MEDS: MEROPENEM 1 G in IV NS 0.9% 100 ML IV SCH ×2 (06:00→15:04)
--- NOTE | 2017-03-21 07:35 | NUR ---
RN NOTE RECEIVED PT IN BED, EYES OPEN, NON-VERBAL RESTING COMFORTABLY IN BED. ON 4L NC, RESPIRATIONS EVEN AND UNLABORED, NO SOB OR DISTRESS PRESENT. TELE MONITOR SR 70'S. G-TUBE PRESENTNO RESIDUAL NOTED FROM GT FEEDING, PAULINO MIDLINE PRESENT RUNNING NS @ TKO. ISOLATION PRECAUTION OBSERVED, SAFETY MEASURES TAKEN: BED LOCKED AND IN LOW POSITION, SIDE RAILS UP X2, BED ALARM ON AND CALL LIGHT WITHIN REACH, WILL CONTINUE TO MONITOR.
[2017-03-21 08:00] VITALS: BP 125/72
[2017-03-21] MEDS: methylPREDNISolone SOD SUCC 40 MG/ML VIAL IV SCH (08:52)
[2017-03-21] MEDS: LACTOBACILLUS RHAMNOSUS GG 1 EACH CAP.SPRINK GT SCH ×2 (08:52→17:34)
[2017-03-21] MEDS: Z GUARD REMEDY 2 OZ OINT TP SCH (08:52)
[2017-03-21] MEDS: LINEZOLID 600 MG TABLET PO SCH (08:52)
[2017-03-21] MEDS: PANTOPRAZOLE 40 MG VIAL IV SCH (08:52)
[2017-03-21] MEDS: ACETYLCYSTEINE 10% SOLN 400 MG/4 ML VIAL NEB SCH (09:00)
[2017-03-21 12:00] VITALS: BP 108/66
[2017-03-21] MEDS: INSULIN REGULAR, HUMAN 100 UNIT/ML 3 ML VIAL SQ PRN ×2 (13:20→17:34)
[2017-03-21] MEDS: GLYTROL 1,000 ML BAG GT PRN (13:21)
[2017-03-21 16:00] VITALS: BP 101/64
--- NOTE | 2017-03-21 19:30 | NUR ---
DIRECTOR OF CLINICAL EDUCATION - REC'D VERBAL REPORT FROM JENNA GRAF. PT.IS AWAKE,EYES OPEN & NONVERBAL. PT. IS GOING TO BE DISCHARGED TO [facility]. AMBULANCE "MED RESPONSE"-UNIT #29 HERE AT 19:45. VERBAL REPORT GIVEN TO UNDERGROUND TRUCK OPERATOR/CAROLA & HIS PARTNER AT 19:50. TELEBOX REMOVED & GIVEN TO LICENSED PSYCHOLOGIST MANAGER MED TECH WINSOME. OFFICIALLY DC'D AT 20:20PM. INITIAL ASSESSMENT COMPLETED. MICHELLE-[place] CLEANED PT. UP PRIOR TO DISCHARGE. RAILWAY EQUIPMENT OPERATOR-GEOVANNA VENTURA. CONT.POC. PARAMEDICS RECEIVED A COPY OF PT'S CHART UPON LEAVING. Addendum: 03/21/17 at 2031 by BAILEE HALEY RN VSS: GI=344/81, RR=20,O2 SAT-99% & HR=93. AFEBRILE. CONT.POC.
== END 2017-03-21 20:20 | DRG 871 ==
LOC: ER 12:00 → TELE 14:05 → ICUOV 03-13 10:34 → TELE1 03-15 09:18 → MEDSG1 03-18 10:55 → TELE-TD 03-19 08:47
PROVIDERS: ADMIT Internal Medicine; ATTEND Internal Medicine
PROC: 05H533Z Insertion of Infusion Device into Right Subclavian Vein, Percutaneous Approach (ICD-10-PCS; principal; 2017-03-12)
DX: A41.9 Sepsis, unspecified organism (principal); J69.0 Pneumonitis due to inhalation of food and vomit; J96.21 Acute and chronic respiratory failure with hypoxia; E43 Unspecified severe protein-calorie malnutrition; G93.41 Metabolic encephalopathy; R53.2 Functional quadriplegia; R13.10 Dysphagia, unspecified; J96.22 Acute and chronic respiratory failure with hypercapnia; D68.59 Other primary thrombophilia; N39.0 Urinary tract infection, site not specified; E66.2 Morbid (severe) obesity with alveolar hypoventilation; E11.22 Type 2 diabetes mellitus with diabetic chronic kidney disease; E66.9 Obesity, unspecified; E78.5 Hyperlipidemia, unspecified; E88.09 Other disorders of plasma-protein metabolism, not elsewhere classified; G20 Parkinson's disease; I12.9 Hypertensive chronic kidney disease with stage 1 through stage 4 chronic kidney disease, or unspecified chronic kidney disease; N18.9 Chronic kidney disease, unspecified; Z93.1 Gastrostomy status; I25.10 Atherosclerotic heart disease of native coronary artery without angina pectoris; F02.80 Dementia in other diseases classified elsewhere, unspecified severity, without behavioral disturbance, psychotic disturbance, mood disturbance, and anxiety; Z87.01 Personal history of pneumonia (recurrent); J40 Bronchitis, not specified as acute or chronic; Z68.35 Body mass index [BMI] 35.0-35.9, adult; Z88.2 Allergy status to sulfonamides; B95.2 Enterococcus as the cause of diseases classified elsewhere; Z16.21 Resistance to vancomycin; Z71.3 Dietary counseling and surveillance; Z96.649 Presence of unspecified artificial hip joint; Z96.659 Presence of unspecified artificial knee joint; S31.000A Unspecified open wound of lower back and pelvis without penetration into retroperitoneum, initial encounter; X58.XXXA Exposure to other specified factors, initial encounter; Y93.9 Activity, unspecified; Y92.129 Unspecified place in nursing home as the place of occurrence of the external cause; R65.20 Severe sepsis without septic shock
CPT/HCPCS: 31720; 36415; 36569; 36600; 71010-TC; 80048-TC; 80053-TC; 80076-TC; 80202-TC; 81000-TC; 82803-TC; 82962-TC; 83605-TC; 83735-TC; 83880; 84100-TC; 84484-TC; 85025-TC; 85730-TC; 87040-TC; 87081-TC; 87086-TC; 87186-TC; 87400; 94668-TC; 94799-TC; A4606; A6403; C9113; J1650; J1815; J1940; J2185; J2543; J2920; J3370; J7030; J7040; J7050; J7060; Z7610

== ENCOUNTER 2017-03-25 22:31 | Emergency (ER) | payer MEDICARE, MEDICAID ==
[~2017-03-25] VITALS: Ht 165.1 cm; Wt 98.0 kg
[~2017-03-25 22:31] MED LIST changes: -ATOR10TA GT; -ENOX40DI SQ; -Renal Novasource GT; +ZINC220C6 PO
--- NOTE | 2017-03-25 22:45 | NUR ---
BB RA; PER EMS PT WAS SOB. NAD NOTED. PT NONVERBAL (BASELINE) RR EVEN AND UNLABORED. NO SOB NOTED. PER EMS BASELINE 02% 90 ON 3L. NO NVD AT THIS TIME. PT NOT DIAPHORETIC. PT GOWNED AND PLACED ON MONITOR WAITING FOR MD OLIVER.
--- NOTE | 2017-03-25 22:47 | NUR ---
LAB AT BEDSIDE FOR BLOOD DRAW.
--- NOTE | 2017-03-25 22:50 | NUR ---
GTUBE INTACT AND PATENT. NO S/S INFECTION OR INFILTRATION NOTED. NO RESIDUALS NOTED.
[2017-03-25] MEDS ORDERED: ALBUTEROL FS 2.5 MG/3 ML VIAL.NEB ONE (22:54)
[2017-03-25 22:57] LABS: BASOPHILS % (AUTO) 0.4 % (0.0-2.0); EOSINOPHILS # (AUTO) 0.1 /CMM (0.0-0.7); EOSINOPHILS % (AUTO) 1.3 % (0.0-6.0); HEMATOCRIT 34 % (33-45); LYMPHOCYTES # (AUTO) 1.3 /CMM (0.8-4.8); LYMPHOCYTES % (AUTO) 13.2 % (20.0-44.0); MEAN CORPUSCULAR HEMOGLOBIN 31 PG (26.0-33.0); MEAN CORPUSCULAR HGB CONC 33 g/dl (31.0-36.0); MEAN CORPUSCULAR VOLUME 95 fL (82-100); MONOCYTES # (AUTO) 0.6 /CMM (0.1-1.30); MONOCYTES % (AUTO) 5.9 % (2.0-12.0); NEUTROPHILS % (AUTO) 79.2 % (43.0-81.0); PLATELET COUNT (AUTO) 169 /CMM (150-450); RDW COEFFICIENT OF VARIATION 17.2 (11.5-15.0); RED BLOOD CELL COUNT(AUTO) 3.54 MIL/uL (4.0-5.2); WHITE BLOOD COUNT (AUTO) 10.1 K/uL (4.3-11.0)
[2017-03-25] MEDS ORDERED: ALBUTEROL FS 2.5 MG/3 ML VIAL.NEB NEB ONE (23:00)
--- NOTE | 2017-03-25 23:00 | NUR ---
RT AT BEDSIDE FOR BREATHING TX.
[2017-03-25 23:11] LABS: CALCIUM, SERUM 8.4 mg/dL (8.5-10.1); CREATININE 0.3 mg/dL (0.6-1.3); POTASSIUM 3.6 mmol/L (3.5-5.1)
--- NOTE | 2017-03-25 23:41 | NUR ---
CALLED [facility] FOR BLS TRANSPORT TO [facility] ETA 1215 TRIP#[id number]
--- NOTE | 2017-03-25 23:55 | NUR ---
HR 105 S/P BREATHING TX. PT 02 SAT 92% ROOM AIR.
--- NOTE | 2017-03-26 00:02 | NUR ---
REPORT GIVEN TO HOMAR ALEX INFORMING PT STABLE TO BE TRANSFERRED BACK TO [address] [place] [address] [facility].
--- NOTE | 2017-03-26 00:13 | NUR ---
PT 02 SAT 97% ON 3L NC. DR. REESE MADE AWARE
--- NOTE | 2017-03-26 00:50 | NUR ---
REPORT GIVEN TO SHEY EMT. PT WITH ALL PERSONAL BELONGINGS. PT 02 SAT 95% ON 3L NC. VSS. EMT WITH D/C PAPERS. PER SHEY TOOK OVER CARE. PT TO BE TRANSFERRED TO [facility].
[2017-03-26 00:55] VITALS: BP 113/73
== END 2017-03-26 00:56 | disposition home or self-care (01) ==
LOC: ER 22:32
DX: Z00.8 Encounter for other general examination (principal); R09.02 Hypoxemia; I10 Essential (primary) hypertension; E11.9 Type 2 diabetes mellitus without complications; G20 Parkinson's disease; Z88.2 Allergy status to sulfonamides; Z79.4 Long term (current) use of insulin; Z79.82 Long term (current) use of aspirin
CPT/HCPCS: 36415; 71010; 80048; 85025; 94640 ×2; 99285; A4606; Z7610